=== PATIENT | male | born 1960 | race Caucasian/White ===

== ENCOUNTER 2019-08-15 23:08 | Inpatient (IN) | payer MEDICAID, OTHER ==
[~2019-08-15] VITALS: Ht 170.2 cm; Wt 103.6 kg
[2019-08-15 22:47] VITALS: BP 121/75
[2019-08-15] MEDS ORDERED: ATOR40TA70 PO (23:54)
[2019-08-15] MEDS ORDERED: CLOP75TA4 PO (23:54)
[2019-08-15] MEDS ORDERED: METO-385 PO (23:54)
[2019-08-15] MEDS ORDERED: GABA-531 PO (23:54)
[2019-08-15] MEDS ORDERED: ALBU6.7H11 IH (23:54)
[2019-08-15] MEDS ORDERED: METF-416 PO (23:54)
[2019-08-15] MEDS ORDERED: FURO80TA3 PO (23:54)
[2019-08-15] MEDS ORDERED: CLIN300C11 PO (23:54)
[2019-08-15] MEDS ORDERED: LISI40TA4 PO (23:54)
[2019-08-15] MEDS ORDERED: GLYB5TAB7 PO (23:54)
[2019-08-15] MEDS ORDERED: SPIR25TA6 PO (23:54)
[2019-08-15] MEDS ORDERED: APIX5TAB PO (23:54)
[2019-08-15 23:55] VITALS: BP 121/75
[2019-08-16] VITALS (12 sets, daily range): BP systolic 104–126; BP diastolic 60–78
[2019-08-16] MEDS ORDERED: ZOLPIDEM TARTRATE 5MG TABLET PO PRN (00:45)
[2019-08-16] MEDS ORDERED: DIPHENHYDRAMINE 50MG/ML VIAL IV PRN (00:45)
[2019-08-16] MEDS ORDERED: CLONIDINE 0.1MG TABLET PO PRN (00:45)
[2019-08-16] MEDS ORDERED: IPRATROPIUM/ALBUTEROL 0.5-3(2.5)MG/3ML NEB HHN PRN (00:45)
[2019-08-16] MEDS ORDERED: ONDANSETRON HCL 4MG/2ML INJ IV PRN (00:45)
[2019-08-16] MEDS ORDERED: DEXTROSE 50% WATER 50ML SYRINGE IV PRN (00:45)
[2019-08-16] MEDS ORDERED: MAGNESIUM HYDROXIDE 400MG/5ML 30ML UDC PO PRN (00:45)
[2019-08-16] MEDS ORDERED: HYDROCODONE/APAP 7.5/325MG 1 TAB TABLET PO PRN (00:45)
[2019-08-16] MEDS ORDERED: MAGNESIUM/ALUMINUM HYDROXIDE/SIMETHICONE 30ML UDC PO PRN (00:45)
[2019-08-16] MEDS ORDERED: ACETAMINOPHEN 325MG TABLET PO PRN (00:45)
[2019-08-16] MEDS: MORPHINE SULFATE 2 MG/ML CPJ (NOT FOR IM USE) IV PRN ×4 (01:22→21:19)
[2019-08-16] MEDS: SODIUM CHLORIDE 0.9% INJ 3ML FLUSH IVF SCH ×3 (06:19→21:20)
[2019-08-16] MEDS: BLOOD SUGAR DIAGNOSTIC STRIP TEST SCH ×4 (06:19→21:00)
[2019-08-16 06:50] LABS: BASOPHILS % 0.8 % (0.0-2.0); EOSINOPHILS % 2.7 % (0.0-5.0); HEMATOCRIT. 31.1 % (42.0-52.0); HEMOGLOBIN. 10.3 g/dL (14.0-18.0); LYMPHOCYTES % 15.7 % (20.0-50.0); MEAN CORPUSCULAR HEMOGLOBIN 29.2 pg (28.0-32.0); MEAN CORPUSCULAR VOLUME 88.3 fL (80.0-94.0); MEAN PLATELET VOLUME 9.3 fl (7.4-10.4); MONOCYTES % 12.5 % (2.0-8.0); NEUTROPHILS % 68.3 % (40.0-76.0); PLATELET 233 x1000/uL (130-400); RED BLOOD CELL COUNT 3.52 mill/uL (4.7-6.1); RED CELL DISTRIBUTION WIDTH 17.4 % (11.6-14.6)
[2019-08-16 06:54] LABS: INR 1.2; PROTHROMBIN TIME 12.7 sec (9.6-11.0)
[2019-08-16 08:02] LABS: CHLORIDE 99 mEq/L (98-107)
[2019-08-16 08:20] LABS: CLARITY URINE TURBID (CLEAR); COLOR URINE YELLOW (YELLOW); KETONES URINE NEGATIVE (NEGATIVE); LEUKOCYTE ESTERASE URINE 2+ (NEGATIVE); NITRITE URINE NEGATIVE (NEGATIVE); OCCULT BLOOD URINE 3+ (NEGATIVE); PH URINE 5.5 (4.5-8.0); PROTEIN URINE 3+ (NEGATIVE); SPECIFIC GRAVITY URINE 1.018 (1.005-1.030)
[2019-08-16] MEDS ORDERED: FLUCONAZOLE 200MG/100ML PREMIX IV ONE (08:45)
[2019-08-16] MEDS ORDERED: CLOPIDOGREL 75MG TABLET PO SCH (09:00)
[2019-08-16] MEDS: POLYETHYLENE GLYCOL 3350 (17GM) 1 DOSE PACK PO SCH ×2 (09:00→09:25)
[2019-08-16] MEDS ORDERED: ENOXAPARIN 30MG/0.3ML SYR SUBCUT SCH (09:00)
[2019-08-16] MEDS: INSULIN LISPRO 100 UNITS/ML SUBCUT SCH ×4 (09:22→21:20)
[2019-08-16] MEDS: TAMSULOSIN HCL 0.4MG SR CAPSULE PO SCH (09:24)
[2019-08-16] MEDS: ASPIRIN 81MG EC TABLET PO SCH (09:24)
[2019-08-16] MEDS: METOPROLOL TARTRATE 100MG TABLET PO SCH ×2 (09:24→21:19)
[2019-08-16] MEDS: FAMOTIDINE 20MG TABLET PO SCH ×2 (09:25→21:18)
[2019-08-16] MEDS ORDERED: FLUCONAZOLE 200 MG/100ML BAG 100 ML IV NR (10:00)
[2019-08-16] MEDS ORDERED: FUROSEMIDE 40MG/4ML VIAL IVP NR (10:00)
[2019-08-16] MEDS ORDERED: NITROGLYCERIN 0.4MG TABLET SL SL PRN (10:00)
[2019-08-16] MEDS ORDERED: MAGNESIUM 4 G PREMIX 100 ML IV NR (12:00)
[2019-08-16] MEDS ORDERED: CEFTRIAXONE 2 G in DEXTROSE 5% WATER 50 ML IV SCH (12:00)
[2019-08-16] MEDS: EPOETIN ALFA 10000UNITS/ML VIAL SUBCUT NR (12:00)
[2019-08-16] MEDS ORDERED: FLUCONAZOLE 100MG TABLET PO SCH (17:00)
[2019-08-16] MEDS ORDERED: BISACODYL 10MG SUPP PR PRN (21:00)
[2019-08-16] MEDS ORDERED: DOCUSATE SODIUM 100MG CAPSULE PO SCH (21:00)
[2019-08-16] MEDS ORDERED: DIPHENHYDRAMINE 25MG CAPSULE PO PRN (21:00)
[2019-08-16] MEDS ORDERED: ASCORBIC ACID 500 MG TABLET PO SCH (21:00)
[2019-08-16] MEDS ORDERED: CHLORHEXIDINE GLUCONATE 4% EXTERNAL USE TOP SCH (21:00)
[2019-08-16] MEDS: ALLOPURINOL 300 MG TABLET PO SCH (21:18)
[2019-08-17] VITALS (44 sets, daily range): BP systolic 89–164; BP diastolic 36–149
[2019-08-17] MEDS ORDERED: FUROSEMIDE 40MG/4ML VIAL IVP SCH (01:00)
[2019-08-17] MEDS: MORPHINE SULFATE 2 MG/ML CPJ (NOT FOR IM USE) IV PRN ×2 (01:39→21:20)
[2019-08-17] MEDS ORDERED: MAGNESIUM 4 G PREMIX 100 ML IV SCH (03:00)
[2019-08-17] MEDS ORDERED: FUROSEMIDE 40MG/4ML VIAL IVP NR (05:00)
[2019-08-17] MEDS: ALLOPURINOL 300 MG TABLET PO SCH (05:10)
[2019-08-17] MEDS ORDERED: BACITRACIN 15GM TUBE TOP ONE (05:53)
[2019-08-17] MEDS ORDERED: SKIN ADHESIVE 0.7 GM EA TOP ONE (05:53)
[2019-08-17] MEDS ORDERED: BACITRACIN 50,000 UNITS/VIAL ONE (05:54)
[2019-08-17] MEDS ORDERED: THROMBIN (BOVINE) 5000 UNITS/VIAL TOP ONE (05:54)
[2019-08-17] MEDS: SODIUM CHLORIDE 0.9% INJ 3ML FLUSH IVF SCH ×2 (06:00→20:04)
[2019-08-17] MEDS ORDERED: NICARDIPINE 50 MG in NS 250 ML IV SCH (06:00)
[2019-08-17] MEDS ORDERED: DEL NIDO ELECTROLYTE-S(PH 7.4) 1,000 ML IV SCH ×2 (06:00)
[2019-08-17] MEDS ORDERED: DILTIAZEM HCL 5MG/ML 5ML VIAL IV SCH (06:00)
[2019-08-17] MEDS ORDERED: NOREPINEPHRINE 4 MG in DEXT 5% WATER 246 ML IV SCH (06:00)
[2019-08-17] MEDS ORDERED: PAPAVERINE HCL 180MG in SODIUM CHLORIDE 0.9% 24ML IV SCH (06:00)
[2019-08-17] MEDS: BLOOD SUGAR DIAGNOSTIC STRIP TEST SCH ×8 (06:00→23:08)
[2019-08-17] MEDS ORDERED: CEFAZOLIN 2,000 MG in DEXT 5% WATER 100 ML IV SCH (06:00)
[2019-08-17] MEDS ORDERED: PHENYLEPHRINE 10 MG in DEXT 5% WATER 249 ML IV SCH (06:00)
[2019-08-17] MEDS ORDERED: DOBUTAMINE 250MG PREMIX 250 ML IV SCH (06:00)
[2019-08-17] MEDS ORDERED: AMINOCAPROIC ACID 10,000 MG in SODIUM CHLORIDE 0.9% 460 ML IV SCH (06:00)
[2019-08-17] MEDS ORDERED: HEPARIN 1000 UNITS/ML 10ML ONE ×3 (06:26→10:07)
[2019-08-17 06:57] LABS: BASOPHILS % 0.8 % (0.0-2.0); HEMATOCRIT. 32.3 % (42.0-52.0); HEMOGLOBIN. 10.6 g/dL (14.0-18.0); LYMPHOCYTES % 15.4 % (20.0-50.0); MEAN CORPUSCULAR HEMOGLOBIN 29.3 pg (28.0-32.0); MEAN PLATELET VOLUME 9.1 fl (7.4-10.4); MONOCYTES % 9.5 % (2.0-8.0); NEUTROPHILS % 71.3 % (40.0-76.0); PLATELET 253 x1000/uL (130-400); RED BLOOD CELL COUNT 3.63 mill/uL (4.7-6.1); RED CELL DISTRIBUTION WIDTH 17.6 % (11.6-14.6)
[2019-08-17] MEDS ORDERED: CHLORHEXIDINE GLUCONATE 4% EXTERNAL USE TOP SCH (07:00)
[2019-08-17 07:18] LABS: PHOSPHORUS 3.2 mg/dL (2.5-4.9)
[2019-08-17] MEDS ORDERED: MIDAZOLAM HCL 5 MG/5 ML VIAL ONE (07:25)
[2019-08-17 07:44] LABS: VITAMIN B12 SERUM 896 pg/mL (211-911)
[2019-08-17] MEDS ORDERED: HEPARIN 10,000 UNITS/ML VIAL ONE (08:36)
[2019-08-17] MEDS ORDERED: CALCIUM CHLORIDE 1GM/10ML SYR IV ONE ×2 (08:36→10:08)
[2019-08-17] MEDS ORDERED: AMINOCAPROIC ACID 250 MG/ML 20ML VIAL ONE (08:36)
[2019-08-17] MEDS ORDERED: SODIUM BICARBONATE 8.4% 1 MEQ/ML 50ML SYR IV ONE ×4 (08:36→17:26)
[2019-08-17] MEDS ORDERED: ALBUMIN HUMAN 25GM/100ML (25%) IV ONE (08:36)
[2019-08-17] MEDS: ASPIRIN 81MG EC TABLET PO SCH (09:00)
[2019-08-17] MEDS: TAMSULOSIN HCL 0.4MG SR CAPSULE PO SCH (09:00)
[2019-08-17] MEDS ORDERED: EPHEDRINE SULFATE 50MG/ML VIAL ONE (10:07)
[2019-08-17] MEDS ORDERED: ONDANSETRON HCL 4MG/2ML INJ ONE (10:07)
[2019-08-17] MEDS ORDERED: PROTAMINE SULFATE 10MG/ML VIAL 25ML IV ONE (10:07)
[2019-08-17] MEDS ORDERED: DEXAMETHASONE 4MG/ML 1ML VIAL ONE (10:07)
[2019-08-17] MEDS ORDERED: ESMOLOL HCL 10MG/ML 10ML VIAL IV ONE (10:08)
[2019-08-17] MEDS ORDERED: ETOMIDATE 2MG/ML 10ML VIAL IV ONE (10:08)
[2019-08-17] MEDS ORDERED: EPINEPHRINE 0.1MG/ML (1:10,000) 10ML SYR ONE ×2 (10:08→10:28)
[2019-08-17] MEDS ORDERED: NEOSTIGMINE METHYLSULFATE 1MG/ML 10 ML VIAL ONE (10:08)
[2019-08-17] MEDS ORDERED: ROCURONIUM BROMIDE 10MG/ML VIAL 5ML IV ONE (10:08)
[2019-08-17] MEDS ORDERED: AMIODARONE HCL 50MG/ML 3ML VIAL IV ONE (11:49)
[2019-08-17] MEDS ORDERED: FUROSEMIDE 100MG/10ML VIAL ONE (11:49)
[2019-08-17] MEDS: EPOETIN ALFA 10000UNITS/ML VIAL SUBCUT NR (12:00)
[2019-08-17] MEDS ORDERED: SODIUM CHLORIDE 0.9% 500 ML IV PRN (13:22)
[2019-08-17] MEDS ORDERED: EPINEPHRINE 1 MG in DEXT 5% WATER 250 ML IV SCH (13:30)
[2019-08-17] MEDS ORDERED: CALCIUM CHLORIDE 5,000 MG in DEXT 5% WATER 500 ML IV PRN (13:30)
[2019-08-17] MEDS ORDERED: ALBUMIN HUMAN 12.5G/250ML (5%) IV PRN (13:30)
[2019-08-17] MEDS ORDERED: ALBUMIN HUMAN 25GM/100ML (25%) IV PRN (13:30)
[2019-08-17 14:31] LABS: BG BASE EXCESS -6.4 mmol/L (-2.0-2.0); BG DEOXYHEMOGLOBIN 1.6 % (0.0-5.0); BG FRACTION INSPIRED OXYGEN 50; BG HCO3 ACT 21.6 mmol/L (22.0-26.0); BG METHEMOGLOBIN 0.5 % (0.0-1.5); BG OXYGEN SATURATION 98.4 % (92.0-98.5); BG OXYHEMOGLOBIN 97.9 % (94.0-97.0); BG PCO2 54.1 mmHg (35.0-45.0); BG PH 7.219 (7.350-7.450); BG PO2 149.5 mmHg (75.0-100.0); BG SAMPLE SITE A-LINE; BG TIDAL VOLUME(mL) 500 mL; BG TOTAL HEMOGLOBIN 11.6 g/dL (12.0-18.0); BG VENT MODE VENT - A/C; BG VENT RATE 12 set
[2019-08-17] MEDS ORDERED: SODIUM BICARBONATE 8.4% 1 MEQ/ML 50ML SYR IV SCH (14:45)
[2019-08-17] MEDS: INSULIN REGULAR (DRIP) 100 UNITS in SODIUM CHLORIDE 0.9% 99 ML IV SCH ×2 (14:49→21:13)
[2019-08-17 14:50] LABS: HEMATOCRIT. 32.6 % (42.0-52.0); HEMOGLOBIN. 10.7 g/dL (14.0-18.0); MEAN CORPUSCULAR HEMOGLOBIN 29.5 pg (28.0-32.0); MEAN CORPUSCULAR VOLUME 89.7 fL (80.0-94.0); MEAN PLATELET VOLUME 8.9 fl (7.4-10.4); PLATELET 181 x1000/uL (130-400); RED BLOOD CELL COUNT 3.63 mill/uL (4.7-6.1); RED CELL DISTRIBUTION WIDTH 16.8 % (11.6-14.6)
[2019-08-17] MEDS: DEXT 5%/0.45% NACL 1000ML 1,000 ML IV SCH (14:55)
[2019-08-17 15:02] LABS: CHLORIDE 100 mEq/L (98-107)
[2019-08-17] MEDS: EPINEPHRINE 4 MG in DEXT 5% WATER 246 ML IV SCH ×2 (15:10→15:27)
[2019-08-17] MEDS: DOPAMINE 400MG/250ML PREMIX 250 ML IV SCH ×2 (15:12→15:28)
[2019-08-17 15:36] LABS: BG BASE EXCESS -3.8 mmol/L (-2.0-2.0); BG CARBOXYHEMOGLOBIN 0.4 % (0.5-1.5); BG DEOXYHEMOGLOBIN 7.5 % (0.0-5.0); BG FRACTION INSPIRED OXYGEN 50; BG HCO3 ACT 24.4 mmol/L (22.0-26.0); BG METHEMOGLOBIN 0.2 % (0.0-1.5); BG OXYGEN SATURATION 92.5 % (92.0-98.5); BG OXYHEMOGLOBIN 91.9 % (94.0-97.0); BG PCO2 60.3 mmHg (35.0-45.0); BG PH 7.225 (7.350-7.450); BG PO2 73.9 mmHg (75.0-100.0); BG SAMPLE SITE A-LINE; BG TIDAL VOLUME(mL) 500 mL; BG TOTAL HEMOGLOBIN 11.3 g/dL (12.0-18.0); BG VENT MODE VENT - A/C; BG VENT RATE 12 set
[2019-08-17 15:44] LABS: PLATELET ESTIMATE NORMAL
[2019-08-17 16:11] LABS: BG BASE EXCESS -7.3 mmol/L (-2.0-2.0); BG CARBOXYHEMOGLOBIN 0.3 % (0.5-1.5); BG DEOXYHEMOGLOBIN 4.4 % (0.0-5.0); BG FRACTION INSPIRED OXYGEN 50; BG METHEMOGLOBIN 0.3 % (0.0-1.5); BG OXYGEN SATURATION 95.6 % (92.0-98.5); BG PCO2 41.4 mmHg (35.0-45.0); BG PH 7.279 (7.350-7.450); BG PO2 86.7 mmHg (75.0-100.0); BG SAMPLE SITE A-LINE; BG TIDAL VOLUME(mL) 550 mL; BG TOTAL HEMOGLOBIN 11.3 g/dL (12.0-18.0); BG VENT MODE VENT - A/C; BG VENT RATE 16 set
[2019-08-17] MEDS ORDERED: DEXTROSE 50% WATER 50ML SYRINGE IV PRN ×4 (16:30→16:45)
[2019-08-17] MEDS ORDERED: SODIUM BICARBONATE 8.4% 1 MEQ/ML 50ML SYR IV NR ×2 (16:30→17:28)
[2019-08-17] MEDS: IPRATROPIUM/ALBUTEROL 0.5-3(2.5)MG/3ML NEB HHN SCH ×2 (16:43→21:47)
[2019-08-17] MEDS: MAGNESIUM 1 G PREMIX 100 ML IV PRN (16:52)
[2019-08-17] MEDS ORDERED: INSULIN REGULAR (DRIP) 100 UNITS in SODIUM CHLORIDE 0.9% 99 ML IV SCH (17:00)
[2019-08-17] MEDS: DOCUSATE SODIUM 100MG CAPSULE PO SCH (17:00)
[2019-08-17 17:10] LABS: BG BASE EXCESS -4.7 mmol/L (-2.0-2.0); BG CARBOXYHEMOGLOBIN 0.3 % (0.5-1.5); BG FRACTION INSPIRED OXYGEN 50; BG HCO3 ACT 20.7 mmol/L (22.0-26.0); BG METHEMOGLOBIN 0.3 % (0.0-1.5); BG OXYHEMOGLOBIN 96.4 % (94.0-97.0); BG PCO2 39.2 mmHg (35.0-45.0); BG PO2 98.3 mmHg (75.0-100.0); BG SAMPLE SITE A-LINE; BG TIDAL VOLUME(mL) 550 mL; BG TOTAL HEMOGLOBIN 11.1 g/dL (12.0-18.0); BG VENT MODE VENT - A/C; BG VENT RATE 16 set
[2019-08-17] MEDS ORDERED: KCL 10MEQ/50ML PREMIX 100 ML IV PRN (17:15)
[2019-08-17] MEDS: KCL 10MEQ/50ML PREMIX 150 ML IV PRN ×2 (17:31→20:21)
[2019-08-17 18:04] LABS: BG CARBOXYHEMOGLOBIN 0.1 % (0.5-1.5); BG DEOXYHEMOGLOBIN 1.8 % (0.0-5.0); BG FRACTION INSPIRED OXYGEN 50; BG HCO3 ACT 21.5 mmol/L (22.0-26.0); BG METHEMOGLOBIN 0.2 % (0.0-1.5); BG OXYGEN SATURATION 98.2 % (92.0-98.5); BG OXYHEMOGLOBIN 97.9 % (94.0-97.0); BG PCO2 36.5 mmHg (35.0-45.0); BG PH 7.389 (7.350-7.450); BG PO2 128.7 mmHg (75.0-100.0); BG PRESSURE SUPPORT 15; BG SAMPLE SITE A-LINE; BG TOTAL HEMOGLOBIN 11.1 g/dL (12.0-18.0); BG VENT MODE VENT - CPAP
[2019-08-17] MEDS: BACITRACIN 15GM TUBE TOP SCH (18:41)
[2019-08-17] MEDS: CEFAZOLIN 1000MG PREMIX 50 ML IV SCH ×2 (18:55→23:26)
[2019-08-17 20:00] LABS: BG BASE EXCESS -1.2 mmol/L (-2.0-2.0); BG CARBOXYHEMOGLOBIN 0.1 % (0.5-1.5); BG DEOXYHEMOGLOBIN 1.9 % (0.0-5.0); BG FRACTION INSPIRED OXYGEN 50; BG HCO3 ACT 23.1 mmol/L (22.0-26.0); BG METHEMOGLOBIN 0.2 % (0.0-1.5); BG OXYGEN SATURATION 98.1 % (92.0-98.5); BG OXYHEMOGLOBIN 97.8 % (94.0-97.0); BG PCO2 37.4 mmHg (35.0-45.0); BG PH 7.409 (7.350-7.450); BG PO2 117.5 mmHg (75.0-100.0); BG SAMPLE SITE A-LINE; BG TOTAL HEMOGLOBIN 10.8 g/dL (12.0-18.0); BG VENT MODE MASK - AEROSOL
[2019-08-17] MEDS: FAMOTIDINE 20MG TABLET PO SCH (20:03)
[2019-08-17] MEDS: EPINEPHRINE 4 MG in SODIUM CHLORIDE 0.9% 246 ML IV PRN (20:05)
[2019-08-17 20:06] LABS: HEMATOCRIT. 32.3 % (42.0-52.0); HEMOGLOBIN. 10.7 g/dL (14.0-18.0); MEAN CORPUSCULAR HEMOGLOBIN 29.3 pg (28.0-32.0); MEAN CORPUSCULAR VOLUME 88.6 fL (80.0-94.0); MEAN PLATELET VOLUME 8.8 fl (7.4-10.4); PLATELET 194 x1000/uL (130-400); RED BLOOD CELL COUNT 3.65 mill/uL (4.7-6.1); RED CELL DISTRIBUTION WIDTH 16.1 % (11.6-14.6)
[2019-08-17 20:15] LABS: INR 1.4; PARTIAL THROMBOPLASTIN TIME 27.1 sec (23.4-31.0); PROTHROMBIN TIME 14.6 sec (9.6-11.0)
[2019-08-17 20:18] LABS: PLATELET ESTIMATE NORMAL
[2019-08-17] MEDS ORDERED: MAGNESIUM 2 G PREMIX 50 ML IV ONE (21:15)
[2019-08-18] VITALS (98 sets, daily range): BP systolic 0–149; BP diastolic 0–97
[2019-08-18] MEDS: BLOOD SUGAR DIAGNOSTIC STRIP TEST SCH ×24 (00:31→23:28)
[2019-08-18] MEDS: IPRATROPIUM/ALBUTEROL 0.5-3(2.5)MG/3ML NEB HHN SCH ×6 (00:50→20:45)
[2019-08-18] MEDS: MORPHINE SULFATE 4 MG/ML CPJ (NOT FOR IM USE) IV PRN ×2 (00:58→04:24)
[2019-08-18] MEDS: DOPAMINE 400MG/250ML PREMIX 250 ML IV SCH ×2 (01:20→15:51)
[2019-08-18] MEDS: EPINEPHRINE 4 MG in SODIUM CHLORIDE 0.9% 246 ML IV PRN ×3 (02:11→18:45)
[2019-08-18 02:21] LABS: HEMATOCRIT. 31.6 % (42.0-52.0); HEMOGLOBIN. 10.4 g/dL (14.0-18.0); MEAN CORPUSCULAR HEMOGLOBIN 29.2 pg (28.0-32.0); MEAN CORPUSCULAR VOLUME 88.8 fL (80.0-94.0); MEAN PLATELET VOLUME 9.1 fl (7.4-10.4); PLATELET 203 x1000/uL (130-400); RED BLOOD CELL COUNT 3.56 mill/uL (4.7-6.1); RED CELL DISTRIBUTION WIDTH 16.6 % (11.6-14.6)
[2019-08-18 02:27] LABS: PLATELET ESTIMATE NORMAL
[2019-08-18] MEDS ORDERED: KCL 20MEQ/100ML PREMIX 100 ML IV SCH (03:00)
[2019-08-18] MEDS ORDERED: MAGNESIUM 2 G PREMIX 50 ML IV SCH (03:00)
[2019-08-18 04:48] LABS: BG BASE EXCESS 2.7 mmol/L (-2.0-2.0); BG CARBOXYHEMOGLOBIN 0.1 % (0.5-1.5); BG DEOXYHEMOGLOBIN 6.2 % (0.0-5.0); BG FRACTION INSPIRED OXYGEN 32; BG HCO3 ACT 27.3 mmol/L (22.0-26.0); BG METHEMOGLOBIN 0.2 % (0.0-1.5); BG OXYGEN SATURATION 93.8 % (92.0-98.5); BG OXYHEMOGLOBIN 93.5 % (94.0-97.0); BG PCO2 42.1 mmHg (35.0-45.0); BG SAMPLE SITE A-LINE; BG TOTAL HEMOGLOBIN 11.2 g/dL (12.0-18.0); BG VENT MODE NASAL CANNULA
[2019-08-18] MEDS: SODIUM CHLORIDE 0.9% INJ 3ML FLUSH IVF SCH ×3 (05:46→21:10)
[2019-08-18] MEDS: MORPHINE SULFATE 2 MG/ML CPJ (NOT FOR IM USE) IV PRN ×2 (07:01→15:49)
[2019-08-18] MEDS ORDERED: MAGNESIUM SULFATE 3 GM in DEXT 5% WATER 100 ML IV PRN (08:00)
[2019-08-18] MEDS: CEFAZOLIN 1000MG PREMIX 50 ML IV SCH ×2 (08:00→15:48)
[2019-08-18] MEDS ORDERED: MAGNESIUM 2 G PREMIX 50 ML IV PRN (08:00)
[2019-08-18] MEDS ORDERED: ALBUMIN HUMAN 25GM/500ML (5%) IV ONE (08:45)
[2019-08-18 08:47] LABS: BG BASE EXCESS 3.5 mmol/L (-2.0-2.0); BG CARBOXYHEMOGLOBIN 0.6 % (0.5-1.5); BG DEOXYHEMOGLOBIN 4.9 % (0.0-5.0); BG FRACTION INSPIRED OXYGEN 40; BG HCO3 ACT 28.5 mmol/L (22.0-26.0); BG METHEMOGLOBIN 0.3 % (0.0-1.5); BG OXYGEN SATURATION 95.1 % (92.0-98.5); BG OXYHEMOGLOBIN 94.2 % (94.0-97.0); BG PCO2 44.7 mmHg (35.0-45.0); BG PH 7.422 (7.350-7.450); BG PO2 73.9 mmHg (75.0-100.0); BG SAMPLE SITE A-LINE; BG TOTAL HEMOGLOBIN 11.1 g/dL (12.0-18.0); BG VENT MODE MASK - AEROSOL
[2019-08-18] MEDS: TAMSULOSIN HCL 0.4MG SR CAPSULE PO SCH (09:13)
[2019-08-18] MEDS: ASPIRIN 81MG EC TABLET PO SCH (09:13)
[2019-08-18] MEDS: FAMOTIDINE 20MG TABLET PO SCH ×2 (09:13→20:09)
[2019-08-18] MEDS: DOCUSATE SODIUM 100MG CAPSULE PO SCH ×2 (09:13→17:00)
[2019-08-18] MEDS: BACITRACIN 15GM TUBE TOP SCH ×2 (09:13→17:00)
[2019-08-18 09:27] LABS: HEMATOCRIT. 32.5 % (42.0-52.0); HEMOGLOBIN. 10.6 g/dL (14.0-18.0); MEAN CORPUSCULAR HEMOGLOBIN 29.2 pg (28.0-32.0); MEAN CORPUSCULAR VOLUME 89.7 fL (80.0-94.0); MEAN PLATELET VOLUME 9.4 fl (7.4-10.4); PLATELET 207 x1000/uL (130-400); RED BLOOD CELL COUNT 3.63 mill/uL (4.7-6.1); RED CELL DISTRIBUTION WIDTH 16.7 % (11.6-14.6)
[2019-08-18 09:59] LABS: PLATELET ESTIMATE NORMAL
[2019-08-18 10:41] LABS: BG BASE EXCESS 2.1 mmol/L (-2.0-2.0); BG CARBOXYHEMOGLOBIN 0.3 % (0.5-1.5); BG DEOXYHEMOGLOBIN 2.6 % (0.0-5.0); BG FRACTION INSPIRED OXYGEN 44; BG HCO3 ACT 26.9 mmol/L (22.0-26.0); BG METHEMOGLOBIN 0.1 % (0.0-1.5); BG OXYGEN SATURATION 97.4 % (92.0-98.5); BG PCO2 42.9 mmHg (35.0-45.0); BG PH 7.415 (7.350-7.450); BG PO2 100.1 mmHg (75.0-100.0); BG SAMPLE SITE A-LINE; BG TOTAL HEMOGLOBIN 11.7 g/dL (12.0-18.0); BG VENT MODE NASAL CANNULA
[2019-08-18] MEDS: KETOROLAC 15MG/ML VIAL IV SCH ×3 (10:46→20:08)
[2019-08-18 11:32] LABS: CLARITY URINE CLEAR (CLEAR); COLOR URINE YELLOW (YELLOW); KETONES URINE NEGATIVE (NEGATIVE); LEUKOCYTE ESTERASE URINE 1+ (NEGATIVE); NITRITE URINE NEGATIVE (NEGATIVE); OCCULT BLOOD URINE 1+ (NEGATIVE); PROTEIN URINE 1+ (NEGATIVE); UROBILINOGEN URINE 0.2 E.U./dL (0.2-1.0)
[2019-08-18] MEDS: MAGNESIUM 1 G PREMIX 100 ML IV PRN (11:32)
[2019-08-18] MEDS: DEXT 5%/0.45% NACL 1000ML 1,000 ML IV SCH (11:33)
[2019-08-18] MEDS: CLOPIDOGREL 75MG TABLET PO SCH (12:41)
[2019-08-18] MEDS ORDERED: ALBUMIN HUMAN 12.5G/250ML (5%) IV NR (15:15)
[2019-08-18] MEDS ORDERED: EPOETIN ALFA 10000UNITS/ML VIAL SUBCUT NR (15:30)
[2019-08-18] MEDS ORDERED: FUROSEMIDE 40MG/4ML VIAL IVP NR (15:45)
[2019-08-18] MEDS: ALBUMIN HUMAN 25GM/100ML (25%) IV SCH ×3 (15:48→23:32)
[2019-08-18] MEDS: HALOPERIDOL 5MG TABLET PO PRN (20:09)
[2019-08-18] MEDS ORDERED: FUROSEMIDE 40MG/4ML VIAL IVP SCH (22:00)
[2019-08-18] MEDS ORDERED: MIDODRINE HCL 5MG TABLET PO SCH (22:00)
[2019-08-18] MEDS: MIDODRINE HCL 5MG TABLET PO SCH (22:27)
[2019-08-18] MEDS: SERTRALINE HCL 50MG TABLET PO SCH (22:27)
[2019-08-19] VITALS (92 sets, daily range): BP systolic 72–179; BP diastolic 36–80
[2019-08-19] MEDS: BLOOD SUGAR DIAGNOSTIC STRIP TEST SCH ×20 (00:25→20:53)
[2019-08-19] MEDS: MORPHINE SULFATE 2 MG/ML CPJ (NOT FOR IM USE) IV PRN ×2 (00:26→14:42)
[2019-08-19] MEDS: IPRATROPIUM/ALBUTEROL 0.5-3(2.5)MG/3ML NEB HHN SCH ×6 (00:56→20:34)
[2019-08-19] MEDS: ALBUMIN HUMAN 25GM/100ML (25%) IV SCH ×2 (03:58→09:09)
[2019-08-19 05:36] LABS: HEMATOCRIT. 24.1 % (42.0-52.0); HEMOGLOBIN. 7.9 g/dL (14.0-18.0); MEAN CORPUSCULAR HEMOGLOBIN 29.3 pg (28.0-32.0); MEAN CORPUSCULAR VOLUME 89.9 fL (80.0-94.0); MEAN PLATELET VOLUME 9.3 fl (7.4-10.4); PLATELET 140 x1000/uL (130-400); RED BLOOD CELL COUNT 2.68 mill/uL (4.7-6.1); RED CELL DISTRIBUTION WIDTH 17.1 % (11.6-14.6)
[2019-08-19] MEDS: KETOROLAC 15MG/ML VIAL IV SCH (05:39)
[2019-08-19] MEDS: SODIUM CHLORIDE 0.9% INJ 3ML FLUSH IVF SCH ×3 (05:39→20:53)
[2019-08-19] MEDS: DEXT 5%/0.45% NACL 1000ML 1,000 ML IV SCH (06:16)
[2019-08-19] MEDS: MIDODRINE HCL 5MG TABLET PO SCH ×3 (06:16→20:49)
[2019-08-19] MEDS ORDERED: KCL 20MEQ/100ML PREMIX 100 ML IV SCH (07:00)
[2019-08-19 07:33] LABS: PLATELET ESTIMATE NORMAL
[2019-08-19] MEDS ORDERED: MAGNESIUM 2 G PREMIX 50 ML IV SCH (08:00)
[2019-08-19] MEDS ORDERED: CLOPIDOGREL 75MG TABLET PO SCH (09:00)
[2019-08-19] MEDS ORDERED: BUMETANIDE 2.5MG/10ML VIAL IV NR (09:00)
[2019-08-19] MEDS: DOCUSATE SODIUM 100MG CAPSULE PO SCH ×2 (09:09→17:17)
[2019-08-19] MEDS: FAMOTIDINE 20MG TABLET PO SCH ×2 (09:09→20:49)
[2019-08-19] MEDS: HALOPERIDOL 5MG TABLET PO PRN ×3 (09:09→23:26)
[2019-08-19] MEDS: ASPIRIN 81MG EC TABLET PO SCH (09:09)
[2019-08-19] MEDS: SERTRALINE HCL 50MG TABLET PO SCH (09:10)
[2019-08-19] MEDS: CLOPIDOGREL 75MG TABLET PO SCH (09:10)
[2019-08-19] MEDS: TAMSULOSIN HCL 0.4MG SR CAPSULE PO SCH (09:10)
[2019-08-19] MEDS: BACITRACIN 15GM TUBE TOP SCH ×2 (09:15→17:11)
[2019-08-19] MEDS ORDERED: FUROSEMIDE 100MG/10ML VIAL IV ONE (13:00)
[2019-08-19 13:06] LABS: BG BASE EXCESS 1.6 mmol/L (-2.0-2.0); BG CARBOXYHEMOGLOBIN 0.3 % (0.5-1.5); BG DEOXYHEMOGLOBIN 2.2 % (0.0-5.0); BG FRACTION INSPIRED OXYGEN 40; BG HCO3 ACT 26.9 mmol/L (22.0-26.0); BG METHEMOGLOBIN 0.3 % (0.0-1.5); BG OXYGEN SATURATION 97.8 % (92.0-98.5); BG OXYHEMOGLOBIN 97.2 % (94.0-97.0); BG PCO2 44.9 mmHg (35.0-45.0); BG PH 7.395 (7.350-7.450); BG PO2 116.3 mmHg (75.0-100.0); BG SAMPLE SITE A-LINE; BG TOTAL HEMOGLOBIN 11.7 g/dL (12.0-18.0); BG VENT MODE MASK - AEROSOL
[2019-08-19] MEDS: FUROSEMIDE 100 MG in DEXT 5% WATER 90 ML IV SCH ×2 (13:44→22:55)
[2019-08-19 14:54] LABS: BG BASE EXCESS -1.5 mmol/L (-2.0-2.0); BG CARBOXYHEMOGLOBIN 0.3 % (0.5-1.5); BG DEOXYHEMOGLOBIN 8.8 % (0.0-5.0); BG FRACTION INSPIRED OXYGEN 50; BG HCO3 ACT 23.4 mmol/L (22.0-26.0); BG METHEMOGLOBIN 0.3 % (0.0-1.5); BG OXYGEN SATURATION 91.1 % (92.0-98.5); BG OXYHEMOGLOBIN 90.6 % (94.0-97.0); BG PCO2 40.3 mmHg (35.0-45.0); BG PH 7.382 (7.350-7.450); BG PO2 62.2 mmHg (75.0-100.0); BG SAMPLE SITE A-LINE; BG TOTAL HEMOGLOBIN 11.8 g/dL (12.0-18.0); BG VENT MODE MASK - AEROSOL
[2019-08-19 14:57] LABS: HEMATOCRIT. 33.8 % (42.0-52.0); HEMOGLOBIN. 11.1 g/dL (14.0-18.0); MEAN CORPUSCULAR HEMOGLOBIN 29.6 pg (28.0-32.0); MEAN CORPUSCULAR VOLUME 90.3 fL (80.0-94.0); MEAN PLATELET VOLUME 9.3 fl (7.4-10.4); PLATELET 157 x1000/uL (130-400); RED BLOOD CELL COUNT 3.75 mill/uL (4.7-6.1); RED CELL DISTRIBUTION WIDTH 16.6 % (11.6-14.6)
[2019-08-19 15:03] LABS: CHLORIDE 123 mEq/L (98-107)
[2019-08-19] MEDS ORDERED: DEXTROSE 50% WATER 50ML SYRINGE IV PRN (15:30)
[2019-08-19] MEDS ORDERED: AMIODARONE HCL 150 MG in DEXT 5% WATER 100 ML IV SCH (16:00)
[2019-08-19] MEDS ORDERED: GLYBURIDE 5MG TABLET PO NR (16:30)
[2019-08-19] MEDS: DOPAMINE 400MG/250ML PREMIX 250 ML IV SCH (16:40)
[2019-08-19] MEDS: MORPHINE SULFATE 4 MG/ML CPJ (NOT FOR IM USE) IV PRN ×2 (16:51→21:01)
[2019-08-19] MEDS ORDERED: POTASSIUM CHLORIDE INJ 40 MEQ in DEXT 5% WATER 250 ML IV NR (17:00)
[2019-08-19] MEDS ORDERED: MAGNESIUM 2 G PREMIX 50 ML IV NR (17:00)
[2019-08-19] MEDS: KCL 10MEQ/50ML PREMIX 200 ML IV PRN (17:12)
[2019-08-19 17:35] LABS: PLATELET ESTIMATE NORMAL
[2019-08-19] MEDS: INSULIN LISPRO 100 UNITS/ML SUBCUT SCH ×2 (18:20→20:50)
[2019-08-19] MEDS: HEPARIN 5000 UNITS/ML VIAL SUBCUT SCH (20:50)
[2019-08-20] VITALS (91 sets, daily range): BP systolic 67–223; BP diastolic 25–216
[2019-08-20] MEDS: IPRATROPIUM/ALBUTEROL 0.5-3(2.5)MG/3ML NEB HHN SCH ×6 (00:38→21:26)
[2019-08-20] MEDS: MORPHINE SULFATE 4 MG/ML CPJ (NOT FOR IM USE) IV PRN (00:48)
[2019-08-20] MEDS: DEXT 5%/0.45% NACL 1000ML 1,000 ML IV SCH (03:19)
[2019-08-20] MEDS: EPINEPHRINE 4 MG in SODIUM CHLORIDE 0.9% 246 ML IV PRN (03:19)
[2019-08-20] MEDS ORDERED: METOLAZONE 10MG TABLET PO SCH (04:00)
[2019-08-20] MEDS ORDERED: BUMETANIDE 2.5MG/10ML VIAL IV SCH (04:00)
[2019-08-20 05:49] LABS: HEMATOCRIT. 35.4 % (42.0-52.0); HEMOGLOBIN. 11.4 g/dL (14.0-18.0); MEAN CORPUSCULAR HEMOGLOBIN 29.1 pg (28.0-32.0); MEAN CORPUSCULAR VOLUME 90.4 fL (80.0-94.0); MEAN PLATELET VOLUME 9.7 fl (7.4-10.4); PLATELET 173 x1000/uL (130-400); RED BLOOD CELL COUNT 3.91 mill/uL (4.7-6.1); RED CELL DISTRIBUTION WIDTH 16.7 % (11.6-14.6)
[2019-08-20 05:55] LABS: CHLORIDE 104 mEq/L (98-107)
[2019-08-20 06:03] LABS: PHOSPHORUS 4.6 mg/dL (2.5-4.9)
[2019-08-20] MEDS: MIDODRINE HCL 5MG TABLET PO SCH ×3 (06:11→22:00)
[2019-08-20] MEDS: SODIUM CHLORIDE 0.9% INJ 3ML FLUSH IVF SCH ×3 (06:11→22:00)
[2019-08-20] MEDS: BLOOD SUGAR DIAGNOSTIC STRIP TEST SCH ×4 (07:50→20:57)
[2019-08-20] MEDS ORDERED: METOPROLOL TARTRATE 25MG TABLET PO SCH (09:00)
[2019-08-20] MEDS: ASPIRIN 81MG EC TABLET PO SCH (09:08)
[2019-08-20] MEDS: TAMSULOSIN HCL 0.4MG SR CAPSULE PO SCH (09:09)
[2019-08-20] MEDS: CLOPIDOGREL 75MG TABLET PO SCH (09:09)
[2019-08-20] MEDS: FAMOTIDINE 20MG TABLET PO SCH ×2 (09:09→20:57)
[2019-08-20] MEDS: GLYBURIDE 5MG TABLET PO SCH (09:09)
[2019-08-20] MEDS: DOCUSATE SODIUM 100MG CAPSULE PO SCH ×2 (09:09→17:00)
[2019-08-20] MEDS: SERTRALINE HCL 50MG TABLET PO SCH (09:09)
[2019-08-20] MEDS: HEPARIN 5000 UNITS/ML VIAL SUBCUT SCH ×2 (09:11→20:56)
[2019-08-20] MEDS: INSULIN LISPRO 100 UNITS/ML SUBCUT SCH ×4 (09:11→20:56)
[2019-08-20 09:45] LABS: BG BASE EXCESS -1.9 mmol/L (-2.0-2.0); BG CARBOXYHEMOGLOBIN 0.5 % (0.5-1.5); BG DEOXYHEMOGLOBIN 5.5 % (0.0-5.0); BG FRACTION INSPIRED OXYGEN 40; BG HCO3 ACT 21.7 mmol/L (22.0-26.0); BG METHEMOGLOBIN 0.3 % (0.0-1.5); BG OXYGEN SATURATION 94.5 % (92.0-98.5); BG OXYHEMOGLOBIN 93.7 % (94.0-97.0); BG PCO2 33.3 mmHg (35.0-45.0); BG PH 7.432 (7.350-7.450); BG PO2 71.6 mmHg (75.0-100.0); BG SAMPLE SITE A-LINE; BG TOTAL HEMOGLOBIN 11.9 g/dL (12.0-18.0); BG VENT MODE MASK - AEROSOL
[2019-08-20] MEDS: BACITRACIN 15GM TUBE TOP SCH ×3 (10:19→19:15)
[2019-08-20] MEDS: FUROSEMIDE 100 MG in DEXT 5% WATER 90 ML IV SCH ×2 (10:19→20:52)
[2019-08-20] MEDS: DOPAMINE 400MG/250ML PREMIX 250 ML IV SCH (10:43)
[2019-08-20 11:14] LABS: PLATELET ESTIMATE NORMAL
[2019-08-20] MEDS ORDERED: SODIUM POLYSTYRENE SULFONATE 15 G/60 ML BOT PO NR (17:30)
[2019-08-20] MEDS ORDERED: METOLAZONE 10MG TABLET PO NR (20:15)
[2019-08-20] MEDS: MORPHINE SULFATE 2 MG/ML CPJ (NOT FOR IM USE) IV PRN (20:55)
[2019-08-20] MEDS ORDERED: BUMETANIDE 2.5MG/10ML VIAL IV NR (21:30)
[2019-08-20] MEDS ORDERED: NALOXONE HCL 1 MG/ML 2ML VIAL ONE (21:50)
[2019-08-20 21:55] LABS: BG BASE EXCESS -3.7 mmol/L (-2.0-2.0); BG CARBOXYHEMOGLOBIN 0.1 % (0.5-1.5); BG DEOXYHEMOGLOBIN 17.9 % (0.0-5.0); BG FRACTION INSPIRED OXYGEN 98; BG HCO3 ACT 26.6 mmol/L (22.0-26.0); BG METHEMOGLOBIN 0.1 % (0.0-1.5); BG OXYGEN SATURATION 82.1 % (92.0-98.5); BG OXYHEMOGLOBIN 81.9 % (94.0-97.0); BG PCO2 77.8 mmHg (35.0-45.0); BG PH 7.151 (7.350-7.450); BG PO2 61.9 mmHg (75.0-100.0); BG SAMPLE SITE A-LINE; BG TOTAL HEMOGLOBIN 12.1 g/dL (12.0-18.0); BG VENT MODE MASK - AEROSOL
[2019-08-20] MEDS ORDERED: NALOXONE HCL 1 MG/ML 2ML VIAL IV NR (21:58)
[2019-08-20] MEDS ORDERED: CALCIUM CHLORIDE 1GM/10ML SYR IV ONE (22:10)
[2019-08-20] MEDS ORDERED: DEXTROSE 50% WATER 50ML VIAL IV ONE (22:10)
[2019-08-20] MEDS ORDERED: LIDOCAINE HCL 2% 5ML SYRINGE IV ONE (22:10)
[2019-08-20] MEDS ORDERED: EPINEPHRINE 0.1MG/ML (1:10,000) 10ML SYR ONE (22:10)
[2019-08-20] MEDS ORDERED: SODIUM BICARBONATE 8.4% MEQ/ML 50ML VIAL IV ONE (22:10)
[2019-08-20] MEDS ORDERED: SODIUM BICARBONATE 8.4% 1 MEQ/ML 50ML SYR IV NR (22:30)
[2019-08-20] MEDS ORDERED: EPINEPHRINE 0.1MG/ML (1:10,000) 10ML SYR IV NR (22:41)
[2019-08-20 23:04] LABS: BG CARBOXYHEMOGLOBIN 0.5 % (0.5-1.5); BG DEOXYHEMOGLOBIN 2.4 % (0.0-5.0); BG FRACTION INSPIRED OXYGEN 100; BG METHEMOGLOBIN 0.2 % (0.0-1.5); BG OXYGEN SATURATION 97.6 % (92.0-98.5); BG OXYHEMOGLOBIN 96.9 % (94.0-97.0); BG PCO2 41.2 mmHg (35.0-45.0); BG PH 7.384 (7.350-7.450); BG PO2 108.7 mmHg (75.0-100.0); BG SAMPLE SITE A-LINE; BG TIDAL VOLUME(mL) 550 mL; BG VENT MODE VENT - A/C; BG VENT RATE 16 set
[2019-08-20 23:28] LABS: HEMATOCRIT 34.1 % (42.0-52.0); HEMOGLOBIN 10.8 g/dL (14.0-18.0); MEAN CORPUSCULAR HEMOGLOBIN 29.2 pg (28.0-32.0); MEAN CORPUSCULAR VOLUME 92.1 fL (80.0-94.0); PLATELET 174 x1000/uL (130-400)
[2019-08-20 23:41] LABS: PHOSPHORUS 5.8 mg/dL (2.5-4.9)
[2019-08-20] MEDS: MAGNESIUM 1 G PREMIX 100 ML IV PRN (23:44)
[2019-08-21] VITALS (112 sets, daily range): BP systolic 42–259; BP diastolic 35–166
[2019-08-21] MEDS: IPRATROPIUM/ALBUTEROL 0.5-3(2.5)MG/3ML NEB HHN SCH ×5 (01:09→20:13)
[2019-08-21 01:14] LABS: BG BASE EXCESS 0.8 mmol/L (-2.0-2.0); BG CARBOXYHEMOGLOBIN 0.4 % (0.5-1.5); BG DEOXYHEMOGLOBIN 5.1 % (0.0-5.0); BG FRACTION INSPIRED OXYGEN 80; BG HCO3 ACT 27.6 mmol/L (22.0-26.0); BG METHEMOGLOBIN 0.2 % (0.0-1.5); BG OXYGEN SATURATION 94.9 % (92.0-98.5); BG OXYHEMOGLOBIN 94.3 % (94.0-97.0); BG PCO2 53.9 mmHg (35.0-45.0); BG PH 7.327 (7.350-7.450); BG PO2 81.5 mmHg (75.0-100.0); BG SAMPLE SITE A-LINE; BG TIDAL VOLUME(mL) 550 mL; BG TOTAL HEMOGLOBIN 12.1 g/dL (12.0-18.0); BG VENT MODE VENT - A/C; BG VENT RATE 16 set
[2019-08-21] MEDS ORDERED: MINERAL OIL 30ML BOTTLE PO SCH ×2 (01:15→12:45)
[2019-08-21] MEDS ORDERED: AMIODARONE HCL 50MG/ML 3ML VIAL IV SCH ×2 (01:45→22:00)
[2019-08-21] MEDS ORDERED: AMIODARONE HCL 150 MG in DEXT 5% WATER 100 ML IV SCH ×2 (02:00→14:00)
[2019-08-21 02:01] LABS: HEMATOCRIT 34.8 % (42.0-52.0); HEMOGLOBIN 11.1 g/dL (14.0-18.0)
[2019-08-21] MEDS ORDERED: LORAZEPAM 2MG/ML CPJ IV PRN (03:00)
[2019-08-21] MEDS: DEXT 5%/0.45% NACL 1000ML 1,000 ML IV SCH ×2 (03:24→17:14)
[2019-08-21] MEDS: MIDODRINE HCL 5MG TABLET PO SCH ×3 (06:00→21:00)
[2019-08-21 06:04] LABS: HEMATOCRIT. 34.2 % (42.0-52.0); HEMOGLOBIN. 11.1 g/dL (14.0-18.0); MEAN CORPUSCULAR HEMOGLOBIN 29.5 pg (28.0-32.0); MEAN CORPUSCULAR VOLUME 90.7 fL (80.0-94.0); MEAN PLATELET VOLUME 9.6 fl (7.4-10.4); PLATELET 175 x1000/uL (130-400); RED BLOOD CELL COUNT 3.77 mill/uL (4.7-6.1); RED CELL DISTRIBUTION WIDTH 16.9 % (11.6-14.6)
[2019-08-21 06:05] LABS: CHLORIDE 103 mEq/L (98-107)
[2019-08-21 06:12] LABS: PHOSPHORUS 4.9 mg/dL (2.5-4.9)
[2019-08-21] MEDS: SODIUM CHLORIDE 0.9% INJ 3ML FLUSH IVF SCH ×3 (06:17→21:22)
[2019-08-21] MEDS: BLOOD SUGAR DIAGNOSTIC STRIP TEST SCH ×4 (07:50→20:35)
[2019-08-21] MEDS ORDERED: MAGNESIUM 2 G PREMIX 50 ML IV SCH (08:00)
[2019-08-21] MEDS ORDERED: KCL 20MEQ/100ML PREMIX 100 ML IV SCH (08:00)
[2019-08-21] MEDS: GLYBURIDE 5MG TABLET PO SCH (08:10)
[2019-08-21] MEDS: FAMOTIDINE 20MG TABLET PO SCH ×2 (08:10→20:55)
[2019-08-21] MEDS: CLOPIDOGREL 75MG TABLET PO SCH (08:10)
[2019-08-21] MEDS: DOCUSATE SODIUM 100MG CAPSULE PO SCH (08:10)
[2019-08-21] MEDS: ASPIRIN 81MG EC TABLET PO SCH (08:10)
[2019-08-21] MEDS: TAMSULOSIN HCL 0.4MG SR CAPSULE PO SCH (08:10)
[2019-08-21] MEDS: SERTRALINE HCL 50MG TABLET PO SCH (08:10)
[2019-08-21] MEDS: FUROSEMIDE 100 MG in DEXT 5% WATER 90 ML IV SCH ×2 (08:11→20:33)
[2019-08-21] MEDS: HEPARIN 5000 UNITS/ML VIAL SUBCUT SCH ×2 (08:11→20:35)
[2019-08-21] MEDS: INSULIN LISPRO 100 UNITS/ML SUBCUT SCH ×4 (08:14→20:36)
[2019-08-21] MEDS: BACITRACIN 15GM TUBE TOP SCH ×2 (08:33→17:13)
[2019-08-21] MEDS: DOPAMINE 400MG/250ML PREMIX 250 ML IV SCH (09:00)
[2019-08-21 09:11] LABS: *CREATININE RANDOM URINE 92.9 mg/dL (Not Estab.); MICROALBUMIN RANDOM URINE 171.6 ug/mL (Not Estab.)
[2019-08-21 09:59] LABS: BG BASE EXCESS 1.7 mmol/L (-2.0-2.0); BG CARBOXYHEMOGLOBIN 0.4 % (0.5-1.5); BG DEOXYHEMOGLOBIN 1.4 % (0.0-5.0); BG FRACTION INSPIRED OXYGEN 80; BG HCO3 ACT 25.6 mmol/L (22.0-26.0); BG METHEMOGLOBIN 0.2 % (0.0-1.5); BG OXYGEN SATURATION 98.6 % (92.0-98.5); BG PCO2 37.8 mmHg (35.0-45.0); BG PH 7.449 (7.350-7.450); BG PO2 129.8 mmHg (75.0-100.0); BG SAMPLE SITE A-LINE; BG TIDAL VOLUME(mL) 600 mL; BG TOTAL HEMOGLOBIN 11.6 g/dL (12.0-18.0); BG VENT MODE VENT - A/C; BG VENT RATE 16 set
[2019-08-21 11:38] LABS: PLATELET ESTIMATE NORMAL
[2019-08-21] MEDS ORDERED: KCL 20MEQ/100ML PREMIX 100 ML IV ONE ×2 (12:45)
[2019-08-21] MEDS ORDERED: POTASSIUM CHLORIDE INJ 40 MEQ in DEXT 5% WATER 250 ML IV SCH (13:00)
[2019-08-21] MEDS ORDERED: AMIODARONE HCL 50MG/ML 9ML VIAL IV ONE (13:15)
[2019-08-21] MEDS ORDERED: AMIODARONE HCL 50MG/ML 3ML VIAL IV ONE (13:15)
[2019-08-21] MEDS ORDERED: LIDOCAINE HCL/PF 1% 10 MG/ML 5ML VIAL ONE ×2 (13:30→13:36)
[2019-08-21] MEDS ORDERED: AMIODARONE HCL 900 MG in DEXT 5% WATER 500 ML IV SCH (14:00)
[2019-08-21 14:23] LABS: BG BASE EXCESS 7.3 mmol/L (-2.0-2.0); BG CARBOXYHEMOGLOBIN 0.2 % (0.5-1.5); BG DEOXYHEMOGLOBIN 7.4 % (0.0-5.0); BG FRACTION INSPIRED OXYGEN 50; BG HCO3 ACT 30.8 mmol/L (22.0-26.0); BG METHEMOGLOBIN 0.3 % (0.0-1.5); BG OXYGEN SATURATION 92.6 % (92.0-98.5); BG OXYHEMOGLOBIN 92.1 % (94.0-97.0); BG PCO2 39.6 mmHg (35.0-45.0); BG PH 7.509 (7.350-7.450); BG PO2 59.3 mmHg (75.0-100.0); BG SAMPLE SITE A-LINE; BG TIDAL VOLUME(mL) 500 mL; BG TOTAL HEMOGLOBIN 11.8 g/dL (12.0-18.0); BG VENT MODE VENT - A/C; BG VENT RATE 16 set
[2019-08-21] MEDS ORDERED: LIDOCAINE HCL/PF 1% 10 MG/ML 5ML VIAL IJ SCH ×2 (14:30)
[2019-08-21 16:34] LABS: BG CARBOXYHEMOGLOBIN 0.7 % (0.5-1.5); BG DEOXYHEMOGLOBIN 5.4 % (0.0-5.0); BG FRACTION INSPIRED OXYGEN 60; BG METHEMOGLOBIN 0.3 % (0.0-1.5); BG OXYGEN SATURATION 94.5 % (92.0-98.5); BG OXYHEMOGLOBIN 93.6 % (94.0-97.0); BG PCO2 42.3 mmHg (35.0-45.0); BG PH 7.497 (7.350-7.450); BG PRESSURE SUPPORT 10; BG SAMPLE SITE A-LINE; BG TIDAL VOLUME(mL) 550 mL; BG VENT MODE VENT - SIMV; BG VENT RATE 14 set
[2019-08-21] MEDS ORDERED: DOCUSATE SODIUM 100MG CAPSULE NG SCH (17:00)
[2019-08-21] MEDS: DOCUSATE SODIUM SUGAR FREE 100MG/10ML UDC NG SCH (17:13)
[2019-08-21] MEDS ORDERED: POTASSIUM CHLORIDE INJ 40 MEQ in DEXT 5% WATER 250 ML IV NR (21:00)
[2019-08-21] MEDS ORDERED: AMIODARONE HCL 150 MG in DEXT 5% WATER 100 ML IV NR (21:00)
[2019-08-21] MEDS ORDERED: AMIODARONE HCL 200 MG TABLET PO SCH (21:00)
[2019-08-21 22:32] LABS: BG BASE EXCESS 7.9 mmol/L (-2.0-2.0); BG DEOXYHEMOGLOBIN 2.2 % (0.0-5.0); BG FRACTION INSPIRED OXYGEN 60; BG METHEMOGLOBIN 0.1 % (0.0-1.5); BG OXYGEN SATURATION 97.8 % (92.0-98.5); BG OXYHEMOGLOBIN 97.7 % (94.0-97.0); BG PCO2 37.4 mmHg (35.0-45.0); BG PH 7.536 (7.350-7.450); BG PO2 102.9 mmHg (75.0-100.0); BG SAMPLE SITE A-LINE; BG TIDAL VOLUME(mL) 550 mL; BG TOTAL HEMOGLOBIN 11.6 g/dL (12.0-18.0); BG VENT MODE VENT - SIMV; BG VENT RATE 14 set
[2019-08-22] VITALS (61 sets, daily range): BP systolic 90–153; BP diastolic 31–89
[2019-08-22] MEDS: IPRATROPIUM/ALBUTEROL 0.5-3(2.5)MG/3ML NEB HHN SCH ×6 (00:16→21:03)
[2019-08-22 01:39] LABS: HEMATOCRIT. 33.9 % (42.0-52.0); MEAN CORPUSCULAR HEMOGLOBIN 29.2 pg (28.0-32.0); MEAN CORPUSCULAR VOLUME 90.3 fL (80.0-94.0); MEAN PLATELET VOLUME 9.4 fl (7.4-10.4); PLATELET 172 x1000/uL (130-400); RED BLOOD CELL COUNT 3.76 mill/uL (4.7-6.1); RED CELL DISTRIBUTION WIDTH 16.7 % (11.6-14.6)
[2019-08-22 01:45] LABS: CHLORIDE 101 mEq/L (98-107)
[2019-08-22 02:21] LABS: PLATELET ESTIMATE NORMAL
[2019-08-22] MEDS ORDERED: POTASSIUM CHLORIDE INJ 30 MEQ in DEXT 5% WATER 235 ML IV SCH (02:30)
[2019-08-22] MEDS ORDERED: MAGNESIUM 2 G PREMIX 50 ML IV SCH (02:30)
[2019-08-22 05:10] LABS: BG BASE EXCESS 6.7 mmol/L (-2.0-2.0); BG CARBOXYHEMOGLOBIN 0.1 % (0.5-1.5); BG DEOXYHEMOGLOBIN 2.6 % (0.0-5.0); BG FRACTION INSPIRED OXYGEN 50; BG HCO3 ACT 29.6 mmol/L (22.0-26.0); BG METHEMOGLOBIN 0.1 % (0.0-1.5); BG OXYGEN SATURATION 97.4 % (92.0-98.5); BG OXYHEMOGLOBIN 97.2 % (94.0-97.0); BG PCO2 35.8 mmHg (35.0-45.0); BG PH 7.535 (7.350-7.450); BG PO2 94.3 mmHg (75.0-100.0); BG SAMPLE SITE A-LINE; BG TIDAL VOLUME(mL) 550 mL; BG TOTAL HEMOGLOBIN 11.5 g/dL (12.0-18.0); BG VENT MODE VENT - SIMV; BG VENT RATE 10 set
[2019-08-22 06:28] LABS: BG BASE EXCESS 9.3 mmol/L (-2.0-2.0); BG CARBOXYHEMOGLOBIN 0.1 % (0.5-1.5); BG DEOXYHEMOGLOBIN 2.9 % (0.0-5.0); BG FRACTION INSPIRED OXYGEN 50; BG HCO3 ACT 33.1 mmol/L (22.0-26.0); BG METHEMOGLOBIN 0.1 % (0.0-1.5); BG OXYGEN SATURATION 97.1 % (92.0-98.5); BG OXYHEMOGLOBIN 96.9 % (94.0-97.0); BG PCO2 41.9 mmHg (35.0-45.0); BG PH 7.515 (7.350-7.450); BG PRESSURE SUPPORT 15; BG SAMPLE SITE A-LINE; BG TOTAL HEMOGLOBIN 11.4 g/dL (12.0-18.0); BG VENT MODE VENT - CPAP
[2019-08-22] MEDS: SODIUM CHLORIDE 0.9% INJ 3ML FLUSH IVF SCH ×3 (06:30→20:35)
[2019-08-22] MEDS: MIDODRINE HCL 5MG TABLET PO SCH ×3 (06:33→20:35)
[2019-08-22 06:56] LABS: HEMATOCRIT. 32.5 % (42.0-52.0); HEMOGLOBIN. 10.6 g/dL (14.0-18.0); MEAN CORPUSCULAR HEMOGLOBIN 29.5 pg (28.0-32.0); MEAN PLATELET VOLUME 9.6 fl (7.4-10.4); PLATELET 165 x1000/uL (130-400); RED BLOOD CELL COUNT 3.61 mill/uL (4.7-6.1); RED CELL DISTRIBUTION WIDTH 16.3 % (11.6-14.6)
[2019-08-22 07:19] LABS: CHLORIDE 100 mEq/L (98-107)
[2019-08-22 07:26] LABS: PHOSPHORUS 2.9 mg/dL (2.5-4.9)
[2019-08-22] MEDS: KCL 10MEQ/50ML PREMIX 200 ML IV PRN ×2 (08:02→16:12)
[2019-08-22] MEDS ORDERED: LIDOCAINE HCL 1% 20ML VIAL (Pyxis) INJ ONE (08:40)
[2019-08-22] MEDS: INSULIN LISPRO 100 UNITS/ML SUBCUT SCH ×4 (08:40→23:31)
[2019-08-22] MEDS: BLOOD SUGAR DIAGNOSTIC STRIP TEST SCH ×4 (08:40→23:29)
[2019-08-22] MEDS: DOCUSATE SODIUM SUGAR FREE 100MG/10ML UDC NG SCH ×2 (08:50→17:13)
[2019-08-22] MEDS: GLYBURIDE 5MG TABLET PO SCH (08:51)
[2019-08-22] MEDS: CLOPIDOGREL 75MG TABLET PO SCH (08:51)
[2019-08-22] MEDS: HALOPERIDOL 5MG TABLET PO PRN (08:51)
[2019-08-22] MEDS: FAMOTIDINE 20MG TABLET PO SCH ×2 (08:51→20:35)
[2019-08-22] MEDS: METHYLPHENIDATE HCL 5MG TABLET PO SCH ×2 (08:51→17:13)
[2019-08-22] MEDS: SERTRALINE HCL 50MG TABLET PO SCH (08:51)
[2019-08-22] MEDS: TAMSULOSIN HCL 0.4MG SR CAPSULE PO SCH (08:51)
[2019-08-22] MEDS: ASPIRIN 81MG EC TABLET PO SCH (08:51)
[2019-08-22] MEDS: BACITRACIN 15GM TUBE TOP SCH ×2 (08:52→17:13)
[2019-08-22] MEDS: MAGNESIUM 1 G PREMIX 100 ML IV PRN ×2 (09:01→16:12)
[2019-08-22 09:07] LABS: NUCLEATED RED BLOOD CELLS 1 /100 WBC
[2019-08-22 09:08] LABS: PLATELET ESTIMATE NORMAL
[2019-08-22 09:11] LABS: BG BASE EXCESS 6.2 mmol/L (-2.0-2.0); BG CARBOXYHEMOGLOBIN 0.3 % (0.5-1.5); BG DEOXYHEMOGLOBIN 1.9 % (0.0-5.0); BG FRACTION INSPIRED OXYGEN 35; BG HCO3 ACT 29.6 mmol/L (22.0-26.0); BG METHEMOGLOBIN 0.3 % (0.0-1.5); BG OXYGEN SATURATION 98.1 % (92.0-98.5); BG OXYHEMOGLOBIN 97.5 % (94.0-97.0); BG PCO2 38.5 mmHg (35.0-45.0); BG PH 7.504 (7.350-7.450); BG PO2 109.9 mmHg (75.0-100.0); BG SAMPLE SITE A-LINE; BG TOTAL HEMOGLOBIN 11.5 g/dL (12.0-18.0); BG VENT MODE MASK - AEROSOL
[2019-08-22] MEDS: INSULIN GLARGINE UD 100 UNITS/ML SYR SUBCUT SCH ×2 (10:45→22:00)
[2019-08-22] MEDS ORDERED: FUROSEMIDE 100 MG in DEXT 5% WATER 90 ML IV SCH (15:00)
[2019-08-22] MEDS: DEXT 5%/0.45% NACL 1000ML 1,000 ML IV SCH (16:29)
[2019-08-22] MEDS: APIXABAN 5 MG TABLET PO SCH (17:13)
[2019-08-22] MEDS: HYDROCODONE/ACETAMINOPHEN 5/325MG TABLET PO PRN (20:30)
[2019-08-23] VITALS (26 sets, daily range): BP systolic 81–125; BP diastolic 44–79
[2019-08-23] MEDS: HYDROCODONE/ACETAMINOPHEN 5/325MG TABLET PO PRN ×2 (00:15→07:56)
[2019-08-23] MEDS: KCL 10MEQ/50ML PREMIX 50 ML IV SCH ×4 (01:38→05:12)
[2019-08-23] MEDS: IPRATROPIUM/ALBUTEROL 0.5-3(2.5)MG/3ML NEB HHN SCH ×6 (01:42→21:28)
[2019-08-23] MEDS: SODIUM CHLORIDE 0.9% INJ 3ML FLUSH IVF SCH ×3 (05:00→21:15)
[2019-08-23] MEDS: MIDODRINE HCL 5MG TABLET PO SCH ×3 (05:12→22:17)
[2019-08-23] MEDS: INSULIN LISPRO 100 UNITS/ML SUBCUT SCH ×3 (05:13→17:17)
[2019-08-23] MEDS: BLOOD SUGAR DIAGNOSTIC STRIP TEST SCH ×3 (05:14→17:09)
[2019-08-23] MEDS ORDERED: ALBUMIN HUMAN 25GM/100ML (25%) IV NR (07:02)
[2019-08-23 07:40] LABS: HEMATOCRIT. 31.3 % (42.0-52.0); HEMOGLOBIN. 10.3 g/dL (14.0-18.0); MEAN CORPUSCULAR HEMOGLOBIN 29.7 pg (28.0-32.0); MEAN CORPUSCULAR VOLUME 90.5 fL (80.0-94.0); PLATELET 146 x1000/uL (130-400); RED BLOOD CELL COUNT 3.46 mill/uL (4.7-6.1); RED CELL DISTRIBUTION WIDTH 16.9 % (11.6-14.6)
[2019-08-23] MEDS: DOCUSATE SODIUM SUGAR FREE 100MG/10ML UDC NG SCH ×2 (07:56→17:09)
[2019-08-23] MEDS: AMIODARONE HCL 200 MG TABLET PO SCH ×2 (07:56→21:15)
[2019-08-23] MEDS: FUROSEMIDE 40MG TABLET PO SCH ×2 (07:56→21:15)
[2019-08-23] MEDS: ASPIRIN 81MG EC TABLET PO SCH (07:57)
[2019-08-23] MEDS: CLOPIDOGREL 75MG TABLET PO SCH (07:57)
[2019-08-23] MEDS: METHYLPHENIDATE HCL 5MG TABLET PO SCH ×2 (07:57→17:09)
[2019-08-23] MEDS: TAMSULOSIN HCL 0.4MG SR CAPSULE PO SCH (07:57)
[2019-08-23] MEDS: SERTRALINE HCL 50MG TABLET PO SCH (07:57)
[2019-08-23] MEDS: FAMOTIDINE 20MG TABLET PO SCH ×2 (07:57→21:15)
[2019-08-23] MEDS: BACITRACIN 15GM TUBE TOP SCH ×2 (08:00→17:09)
[2019-08-23 09:20] LABS: PHOSPHORUS 2.6 mg/dL (2.5-4.9)
[2019-08-23] MEDS: KCL 10MEQ/50ML PREMIX 150 ML IV PRN ×2 (09:46→18:51)
[2019-08-23] MEDS: INSULIN GLARGINE UD 100 UNITS/ML SYR SUBCUT SCH ×2 (11:32→22:17)
[2019-08-23] MEDS: ALBUMIN HUMAN 25GM/100ML (25%) IV SCH ×3 (11:34→17:00)
[2019-08-23 12:16] LABS: PLATELET ESTIMATE NORMAL
[2019-08-23] MEDS: MAGNESIUM 1 G PREMIX 100 ML IV PRN (14:51)
[2019-08-23] MEDS: APIXABAN 5 MG TABLET PO SCH (17:09)
[2019-08-24] VITALS (16 sets, daily range): BP systolic 89–157; BP diastolic 55–100
[2019-08-24] MEDS: INSULIN LISPRO 100 UNITS/ML SUBCUT SCH ×4 (00:18→16:25)
[2019-08-24] MEDS: BLOOD SUGAR DIAGNOSTIC STRIP TEST SCH ×4 (00:18→16:25)
[2019-08-24] MEDS: HYDROCODONE/ACETAMINOPHEN 5/325MG TABLET PO PRN ×3 (00:23→20:29)
[2019-08-24] MEDS: IPRATROPIUM/ALBUTEROL 0.5-3(2.5)MG/3ML NEB HHN SCH ×7 (00:58→23:06)
[2019-08-24] MEDS: MIDODRINE HCL 5MG TABLET PO SCH ×4 (05:42→22:42)
[2019-08-24] MEDS: SODIUM CHLORIDE 0.9% INJ 3ML FLUSH IVF SCH ×3 (05:51→22:42)
[2019-08-24 06:54] LABS: BASOPHILS % 0.2 % (0.0-2.0); EOSINOPHILS % 0.5 % (0.0-5.0); HEMATOCRIT. 30.1 % (42.0-52.0); HEMOGLOBIN. 9.7 g/dL (14.0-18.0); LYMPHOCYTES % 7.8 % (20.0-50.0); MEAN CORPUSCULAR HEMOGLOBIN 29.1 pg (28.0-32.0); MEAN CORPUSCULAR VOLUME 90.6 fL (80.0-94.0); MEAN PLATELET VOLUME 10.4 fl (7.4-10.4); MONOCYTES % 5.9 % (2.0-8.0); NEUTROPHILS % 85.6 % (40.0-76.0); PLATELET 137 x1000/uL (130-400); RED BLOOD CELL COUNT 3.32 mill/uL (4.7-6.1); RED CELL DISTRIBUTION WIDTH 17.1 % (11.6-14.6)
[2019-08-24 07:02] LABS: PHOSPHORUS 2.7 mg/dL (2.5-4.9)
[2019-08-24] MEDS ORDERED: BUMETANIDE 1MG/4ML VIAL IV SCH (07:45)
[2019-08-24] MEDS: TAMSULOSIN HCL 0.4MG SR CAPSULE PO SCH (09:00)
[2019-08-24] MEDS: ASPIRIN 81MG EC TABLET PO SCH (09:00)
[2019-08-24] MEDS: SERTRALINE HCL 50MG TABLET PO SCH (09:00)
[2019-08-24] MEDS: AMIODARONE HCL 200 MG TABLET PO SCH ×2 (09:00→20:27)
[2019-08-24] MEDS: DOCUSATE SODIUM SUGAR FREE 100MG/10ML UDC NG SCH ×2 (09:00→16:39)
[2019-08-24] MEDS: FUROSEMIDE 40MG TABLET PO SCH ×2 (09:00→20:27)
[2019-08-24] MEDS: CLOPIDOGREL 75MG TABLET PO SCH (09:00)
[2019-08-24] MEDS: FAMOTIDINE 20MG TABLET PO SCH ×2 (09:00→20:28)
[2019-08-24] MEDS: METHYLPHENIDATE HCL 5MG TABLET PO SCH ×2 (09:00→16:39)
[2019-08-24] MEDS: BACITRACIN 15GM TUBE TOP SCH ×2 (09:00→16:58)
[2019-08-24] MEDS: INSULIN GLARGINE UD 100 UNITS/ML SYR SUBCUT SCH ×2 (11:57→22:43)
[2019-08-24] MEDS ORDERED: BISACODYL 10MG SUPP PR PRN (12:00)
[2019-08-24] MEDS: METOCLOPRAMIDE HCL 10MG/2ML VIAL IV SCH ×2 (12:18→17:00)
[2019-08-24] MEDS: APIXABAN 5 MG TABLET PO SCH (16:39)
[2019-08-24] MEDS ORDERED: BUMETANIDE 1MG/4ML VIAL IV NR (23:45)
[2019-08-25] VITALS (12 sets, daily range): BP systolic 102–134; BP diastolic 48–96
[2019-08-25] MEDS: METOCLOPRAMIDE HCL 10MG/2ML VIAL IV SCH ×4 (02:40→18:00)
[2019-08-25] MEDS: IPRATROPIUM/ALBUTEROL 0.5-3(2.5)MG/3ML NEB HHN SCH ×5 (04:20→20:36)
[2019-08-25] MEDS: INSULIN LISPRO 100 UNITS/ML SUBCUT SCH ×4 (06:00→17:58)
[2019-08-25] MEDS: HYDROCODONE/ACETAMINOPHEN 5/325MG TABLET PO PRN ×2 (06:39→21:48)
[2019-08-25] MEDS: MIDODRINE HCL 5MG TABLET PO SCH ×3 (06:40→21:48)
[2019-08-25] MEDS: BLOOD SUGAR DIAGNOSTIC STRIP TEST SCH ×4 (06:41→17:58)
[2019-08-25] MEDS: SODIUM CHLORIDE 0.9% INJ 3ML FLUSH IVF SCH ×2 (06:41→15:55)
[2019-08-25] MEDS: DOCUSATE SODIUM SUGAR FREE 100MG/10ML UDC NG SCH ×3 (09:00→17:00)
[2019-08-25] MEDS: BACITRACIN 15GM TUBE TOP SCH ×2 (09:00→17:58)
[2019-08-25] MEDS: SERTRALINE HCL 50MG TABLET PO SCH (09:00)
[2019-08-25] MEDS: CLOPIDOGREL 75MG TABLET PO SCH (09:20)
[2019-08-25] MEDS: ASPIRIN 81MG EC TABLET PO SCH (09:20)
[2019-08-25] MEDS: FAMOTIDINE 20MG TABLET PO SCH (09:20)
[2019-08-25] MEDS: FUROSEMIDE 40MG TABLET PO SCH (09:20)
[2019-08-25] MEDS: TAMSULOSIN HCL 0.4MG SR CAPSULE PO SCH (09:20)
[2019-08-25] MEDS: METHYLPHENIDATE HCL 5MG TABLET PO SCH ×2 (09:20→17:00)
[2019-08-25] MEDS: DEXT 5%/0.45% NACL 1000ML 1,000 ML IV SCH (09:21)
[2019-08-25] MEDS: AMIODARONE HCL 200 MG TABLET PO SCH ×2 (09:21→21:48)
[2019-08-25] MEDS ORDERED: METOLAZONE 5MG TABLET PO NR (10:00)
[2019-08-25] MEDS: HALOPERIDOL 5MG TABLET PO PRN (10:56)
[2019-08-25 10:57] LABS: BG BASE EXCESS 13.1 mmol/L (-2.0-2.0); BG CARBOXYHEMOGLOBIN 0.6 % (0.5-1.5); BG DEOXYHEMOGLOBIN 9.1 % (0.0-5.0); BG FRACTION INSPIRED OXYGEN 40; BG HCO3 ACT 36.9 mmol/L (22.0-26.0); BG METHEMOGLOBIN 0.1 % (0.0-1.5); BG OXYGEN SATURATION 90.8 % (92.0-98.5); BG OXYHEMOGLOBIN 90.2 % (94.0-97.0); BG PCO2 43.4 mmHg (35.0-45.0); BG PH 7.547 (7.350-7.450); BG PO2 56.8 mmHg (75.0-100.0); BG SAMPLE SITE RIGHT BRACHIAL; BG TOTAL HEMOGLOBIN 10.4 g/dL (12.0-18.0); BG VENT MODE NASAL CANNULA
[2019-08-25 11:47] LABS: HEMATOCRIT. 29.6 % (42.0-52.0); HEMOGLOBIN. 9.7 g/dL (14.0-18.0); MEAN CORPUSCULAR HEMOGLOBIN 29.2 pg (28.0-32.0); MEAN CORPUSCULAR VOLUME 89.5 fL (80.0-94.0); MEAN PLATELET VOLUME 9.9 fl (7.4-10.4); PLATELET 171 x1000/uL (130-400); RED BLOOD CELL COUNT 3.31 mill/uL (4.7-6.1); RED CELL DISTRIBUTION WIDTH 16.9 % (11.6-14.6)
[2019-08-25] MEDS ORDERED: BUMETANIDE 2.5MG/10ML VIAL IV NR (12:00)
[2019-08-25 12:01] LABS: CHLORIDE 94 mEq/L (98-107)
[2019-08-25 12:08] LABS: PHOSPHORUS 2.9 mg/dL (2.5-4.9)
[2019-08-25 12:48] LABS: INR 1.5; PROTHROMBIN TIME 16.1 sec (9.6-11.0)
[2019-08-25] MEDS: PANTOPRAZOLE SODIUM 40 MG/VIAL IV SCH ×2 (13:05→21:46)
[2019-08-25 13:08] LABS: NUCLEATED RED BLOOD CELLS 1 /100 WBC
[2019-08-25 13:09] LABS: PLATELET ESTIMATE NORMAL
[2019-08-25] MEDS: KCL 20MEQ/100ML PREMIX 100 ML IV SCH ×3 (13:28→17:49)
[2019-08-25] MEDS: APIXABAN 5 MG TABLET PO SCH (17:00)
[2019-08-26] VITALS (8 sets, daily range): BP systolic 92–125; BP diastolic 26–93
[2019-08-26] MEDS: BLOOD SUGAR DIAGNOSTIC STRIP TEST SCH ×4 (00:41→18:00)
[2019-08-26] MEDS: METOCLOPRAMIDE HCL 10MG/2ML VIAL IV SCH ×4 (00:41→17:58)
[2019-08-26] MEDS: POTASSIUM CHLORIDE INJ 40 MEQ in DEXT 5% WATER 250 ML IV SCH ×2 (01:00→06:01)
[2019-08-26] MEDS: SODIUM CHLORIDE 0.9% INJ 3ML FLUSH IVF SCH ×4 (01:22→21:23)
[2019-08-26] MEDS: IPRATROPIUM/ALBUTEROL 0.5-3(2.5)MG/3ML NEB HHN SCH ×3 (02:14→16:56)
[2019-08-26] MEDS: ACETYLCYSTEINE 100MG/ML 10% VIAL 4ML INH SCH ×2 (02:15→08:51)
[2019-08-26] MEDS: INSULIN LISPRO 100 UNITS/ML SUBCUT SCH ×4 (06:00→18:00)
[2019-08-26] MEDS: DEXT 5%/0.45% NACL 1000ML 1,000 ML IV SCH (06:05)
[2019-08-26] MEDS ORDERED: MAGNESIUM 2 G PREMIX 50 ML IV SCH (08:00)
[2019-08-26 08:27] LABS: BG BASE EXCESS 12.7 mmol/L (-2.0-2.0); BG CARBOXYHEMOGLOBIN 0.3 % (0.5-1.5); BG DEOXYHEMOGLOBIN 6.6 % (0.0-5.0); BG HCO3 ACT 36.6 mmol/L (22.0-26.0); BG METHEMOGLOBIN 0.2 % (0.0-1.5); BG OXYGEN SATURATION 93.4 % (92.0-98.5); BG OXYHEMOGLOBIN 92.9 % (94.0-97.0); BG PCO2 44.6 mmHg (35.0-45.0); BG PH 7.532 (7.350-7.450); BG PO2 66.3 mmHg (75.0-100.0); BG SAMPLE SITE RIGHT RADIAL; BG TOTAL HEMOGLOBIN 9.3 g/dL (12.0-18.0); BG VENT MODE NASAL CANNULA
[2019-08-26 08:52] LABS: HEMATOCRIT. 28.6 % (42.0-52.0); HEMOGLOBIN. 9.3 g/dL (14.0-18.0); MEAN CORPUSCULAR HEMOGLOBIN 29.4 pg (28.0-32.0); MEAN CORPUSCULAR VOLUME 90.2 fL (80.0-94.0); MEAN PLATELET VOLUME 10.4 fl (7.4-10.4); PLATELET 179 x1000/uL (130-400); RED BLOOD CELL COUNT 3.17 mill/uL (4.7-6.1); RED CELL DISTRIBUTION WIDTH 17.5 % (11.6-14.6)
[2019-08-26 08:59] LABS: PHOSPHORUS 3.7 mg/dL (2.5-4.9)
[2019-08-26] MEDS ORDERED: KCL 20MEQ/100ML PREMIX 100 ML IV ONE (09:00)
[2019-08-26 09:04] LABS: FERRITIN 569 ng/mL (22-322)
[2019-08-26] MEDS: HYDROCODONE/ACETAMINOPHEN 5/325MG TABLET PO PRN ×2 (09:54→17:58)
[2019-08-26] MEDS: PANTOPRAZOLE SODIUM 40 MG/VIAL IV SCH ×2 (10:18→21:22)
[2019-08-26] MEDS: DOCUSATE SODIUM SUGAR FREE 100MG/10ML UDC NG SCH ×2 (10:18→17:58)
[2019-08-26] MEDS: CLOPIDOGREL 75MG TABLET PO SCH (10:19)
[2019-08-26] MEDS: ASPIRIN 81MG EC TABLET PO SCH (10:19)
[2019-08-26] MEDS: SERTRALINE HCL 50MG TABLET PO SCH (10:19)
[2019-08-26] MEDS: METHYLPHENIDATE HCL 5MG TABLET PO SCH ×2 (10:19→17:58)
[2019-08-26] MEDS: AMIODARONE HCL 200 MG TABLET PO SCH ×2 (10:19→21:22)
[2019-08-26] MEDS: MIDODRINE HCL 5MG TABLET PO SCH ×3 (10:20→21:22)
[2019-08-26] MEDS: TAMSULOSIN HCL 0.4MG SR CAPSULE PO SCH (10:21)
[2019-08-26] MEDS: BACITRACIN 15GM TUBE TOP SCH ×2 (10:21→18:01)
[2019-08-26] MEDS ORDERED: POTASSIUM CHLORIDE INJ 40 MEQ in DEXT 5% WATER 250 ML IV NR ×2 (13:30→21:00)
[2019-08-26 14:50] LABS: VITAMIN B12 SERUM 651 pg/mL (211-911)
[2019-08-26] MEDS: APIXABAN 5 MG TABLET PO SCH (17:58)
[2019-08-26] MEDS ORDERED: ACETYLCYSTEINE 100MG/ML 10% VIAL 4ML INH SCH (18:00)
[2019-08-26 19:07] LABS: PLATELET ESTIMATE NORMAL
[2019-08-27] VITALS (12 sets, daily range): BP systolic 92–117; BP diastolic 50–79
[2019-08-27] MEDS: METOCLOPRAMIDE HCL 10MG/2ML VIAL IV SCH ×4 (00:05→17:50)
[2019-08-27] MEDS: BLOOD SUGAR DIAGNOSTIC STRIP TEST SCH ×4 (06:00→17:38)
[2019-08-27 06:23] LABS: BASOPHILS % 0.3 % (0.0-2.0); EOSINOPHILS % 0.7 % (0.0-5.0); HEMATOCRIT. 26.2 % (42.0-52.0); HEMOGLOBIN. 8.5 g/dL (14.0-18.0); LYMPHOCYTES % 7.2 % (20.0-50.0); MEAN CORPUSCULAR HEMOGLOBIN 29.5 pg (28.0-32.0); MEAN CORPUSCULAR VOLUME 90.7 fL (80.0-94.0); MEAN PLATELET VOLUME 10.4 fl (7.4-10.4); MONOCYTES % 6.2 % (2.0-8.0); NEUTROPHILS % 85.6 % (40.0-76.0); PLATELET 190 x1000/uL (130-400); RED BLOOD CELL COUNT 2.89 mill/uL (4.7-6.1); RED CELL DISTRIBUTION WIDTH 17.3 % (11.6-14.6)
[2019-08-27] MEDS: MIDODRINE HCL 5MG TABLET PO SCH ×3 (06:30→21:08)
[2019-08-27] MEDS: SODIUM CHLORIDE 0.9% INJ 3ML FLUSH IVF SCH ×3 (06:30→21:08)
[2019-08-27 06:49] LABS: PHOSPHORUS 3.3 mg/dL (2.5-4.9)
[2019-08-27] MEDS: INSULIN LISPRO 100 UNITS/ML SUBCUT SCH ×5 (06:53→18:51)
[2019-08-27] MEDS ORDERED: POTASSIUM CHLORIDE 20MEQ TABLET SR PO SCH (09:00)
[2019-08-27] MEDS: IPRATROPIUM/ALBUTEROL 0.5-3(2.5)MG/3ML NEB HHN SCH ×5 (09:20→21:20)
[2019-08-27] MEDS: CLOPIDOGREL 75MG TABLET PO SCH (09:41)
[2019-08-27] MEDS: PANTOPRAZOLE SODIUM 40 MG/VIAL IV SCH ×2 (09:41→21:07)
[2019-08-27] MEDS: ASPIRIN 81MG EC TABLET PO SCH (09:41)
[2019-08-27] MEDS: TAMSULOSIN HCL 0.4MG SR CAPSULE PO SCH (09:41)
[2019-08-27] MEDS: METHYLPHENIDATE HCL 5MG TABLET PO SCH ×2 (09:41→17:50)
[2019-08-27] MEDS: AMIODARONE HCL 200 MG TABLET PO SCH ×2 (09:41→21:08)
[2019-08-27] MEDS: SERTRALINE HCL 50MG TABLET PO SCH (09:41)
[2019-08-27] MEDS: ACETAMINOPHEN 325MG TABLET PO PRN ×2 (09:42→14:35)
[2019-08-27] MEDS: DOCUSATE SODIUM SUGAR FREE 100MG/10ML UDC NG SCH ×2 (09:43→17:50)
[2019-08-27] MEDS: BACITRACIN 15GM TUBE TOP SCH ×2 (09:44→17:51)
[2019-08-27] MEDS ORDERED: POTASSIUM CHLORIDE INJ 40 MEQ in DEXT 5% WATER 250 ML IV ONE (10:00)
[2019-08-27] MEDS ORDERED: SODIUM CHLORIDE 0.9% 1,000 ML IV SCH (12:15)
[2019-08-27] MEDS ORDERED: MINERAL OIL 30ML BOTTLE PO NR (12:28)
[2019-08-27] MEDS ORDERED: GUAIFENESIN 200MG/10ML SUGAR FREE UDC PO PRN (14:00)
[2019-08-27] MEDS: DEXT 5%/0.45% NACL KCL 20MEQ/L 1,000 ML IV SCH (14:35)
[2019-08-27] MEDS: CEFTRIAXONE 1 G PREMIX 50 ML IV SCH (14:36)
[2019-08-27] MEDS: HYDROCODONE/ACETAMINOPHEN 5/325MG TABLET PO PRN (22:03)
[2019-08-28] VITALS (12 sets, daily range): BP systolic 97–124; BP diastolic 60–82
[2019-08-28] MEDS: METOCLOPRAMIDE HCL 10MG/2ML VIAL IV SCH ×4 (00:16→17:35)
[2019-08-28] MEDS: IPRATROPIUM/ALBUTEROL 0.5-3(2.5)MG/3ML NEB HHN SCH ×6 (01:43→21:03)
[2019-08-28] MEDS: HYDROCODONE/ACETAMINOPHEN 5/325MG TABLET PO PRN ×3 (04:42→21:59)
[2019-08-28] MEDS: BLOOD SUGAR DIAGNOSTIC STRIP TEST SCH ×4 (06:00→17:35)
[2019-08-28] MEDS: INSULIN LISPRO 100 UNITS/ML SUBCUT SCH ×4 (06:00→18:00)
[2019-08-28] MEDS: MIDODRINE HCL 5MG TABLET PO SCH ×3 (06:21→21:28)
[2019-08-28] MEDS: SODIUM CHLORIDE 0.9% INJ 3ML FLUSH IVF SCH ×3 (06:22→21:46)
[2019-08-28 07:42] LABS: BASOPHILS % 0.2 % (0.0-2.0); EOSINOPHILS % 1.1 % (0.0-5.0); HEMATOCRIT. 27.6 % (42.0-52.0); HEMOGLOBIN. 8.9 g/dL (14.0-18.0); LYMPHOCYTES % 7.4 % (20.0-50.0); MEAN CORPUSCULAR HEMOGLOBIN 29.5 pg (28.0-32.0); MEAN CORPUSCULAR VOLUME 91.7 fL (80.0-94.0); MEAN PLATELET VOLUME 10.8 fl (7.4-10.4); MONOCYTES % 5.9 % (2.0-8.0); NEUTROPHILS % 85.4 % (40.0-76.0); PLATELET 189 x1000/uL (130-400); RED BLOOD CELL COUNT 3.02 mill/uL (4.7-6.1); RED CELL DISTRIBUTION WIDTH 18.1 % (11.6-14.6)
[2019-08-28 08:08] LABS: PHOSPHORUS 3.1 mg/dL (2.5-4.9)
[2019-08-28] MEDS: DEXT 5%/0.45% NACL KCL 20MEQ/L 1,000 ML IV SCH (09:03)
[2019-08-28] MEDS: PANTOPRAZOLE SODIUM 40 MG/VIAL IV SCH ×2 (09:03→21:28)
[2019-08-28] MEDS: DOCUSATE SODIUM SUGAR FREE 100MG/10ML UDC NG SCH ×2 (09:03→17:35)
[2019-08-28] MEDS: TAMSULOSIN HCL 0.4MG SR CAPSULE PO SCH (09:04)
[2019-08-28] MEDS: SERTRALINE HCL 50MG TABLET PO SCH (09:04)
[2019-08-28] MEDS: CLOPIDOGREL 75MG TABLET PO SCH (09:04)
[2019-08-28] MEDS: METHYLPHENIDATE HCL 5MG TABLET PO SCH ×2 (09:05→17:35)
[2019-08-28] MEDS: AMIODARONE HCL 200 MG TABLET PO SCH ×2 (09:05→21:28)
[2019-08-28] MEDS: BACITRACIN 15GM TUBE TOP SCH ×2 (09:05→17:06)
[2019-08-28] MEDS: ASPIRIN 81MG EC TABLET PO SCH (09:05)
[2019-08-28] MEDS ORDERED: POTASSIUM CHLORIDE INJ 40 MEQ in DEXT 5% WATER 250 ML IV ONE (11:30)
[2019-08-28] MEDS ORDERED: MAGNESIUM 2 G PREMIX 50 ML IV NR (12:00)
[2019-08-28] MEDS: CEFTRIAXONE 1 G PREMIX 50 ML IV SCH (13:30)
[2019-08-28] MEDS ORDERED: POTASSIUM CHLORIDE 20MEQ/PACKET NG NR (17:30)
[2019-08-29] VITALS (12 sets, daily range): BP systolic 97–155; BP diastolic 41–75
[2019-08-29] MEDS: METOCLOPRAMIDE HCL 10MG/2ML VIAL IV SCH ×4 (00:10→17:36)
[2019-08-29] MEDS: BLOOD SUGAR DIAGNOSTIC STRIP TEST SCH ×4 (00:11→17:28)
[2019-08-29] MEDS: INSULIN LISPRO 100 UNITS/ML SUBCUT SCH ×4 (00:11→17:35)
[2019-08-29] MEDS: IPRATROPIUM/ALBUTEROL 0.5-3(2.5)MG/3ML NEB HHN SCH (01:18)
[2019-08-29] MEDS: DEXT 5%/0.45% NACL KCL 20MEQ/L 1,000 ML IV SCH (04:26)
[2019-08-29] MEDS: MIDODRINE HCL 5MG TABLET PO SCH ×3 (06:03→21:30)
[2019-08-29] MEDS: SODIUM CHLORIDE 0.9% INJ 3ML FLUSH IVF SCH ×3 (06:03→21:30)
[2019-08-29 07:42] LABS: HEMATOCRIT. 28.6 % (42.0-52.0); HEMOGLOBIN. 9.1 g/dL (14.0-18.0); MEAN CORPUSCULAR HEMOGLOBIN 29.2 pg (28.0-32.0); MEAN CORPUSCULAR VOLUME 91.4 fL (80.0-94.0); MEAN PLATELET VOLUME 10.3 fl (7.4-10.4); PLATELET 198 x1000/uL (130-400); RED BLOOD CELL COUNT 3.13 mill/uL (4.7-6.1); RED CELL DISTRIBUTION WIDTH 17.3 % (11.6-14.6)
[2019-08-29] MEDS: DOCUSATE SODIUM SUGAR FREE 100MG/10ML UDC NG SCH ×3 (09:05→17:36)
[2019-08-29 09:06] LABS: FOLATE HEMATOCRIT 32.3 % (37.5-51.0)
[2019-08-29] MEDS: ASPIRIN 81MG EC TABLET PO SCH (09:07)
[2019-08-29] MEDS: SERTRALINE HCL 50MG TABLET PO SCH (09:07)
[2019-08-29] MEDS: METHYLPHENIDATE HCL 5MG TABLET PO SCH ×2 (09:07→17:36)
[2019-08-29] MEDS: HYDROCODONE/ACETAMINOPHEN 5/325MG TABLET PO PRN ×2 (09:13→14:21)
[2019-08-29] MEDS: AMIODARONE HCL 200 MG TABLET PO SCH ×2 (09:13→21:29)
[2019-08-29] MEDS: CLOPIDOGREL 75MG TABLET PO SCH (09:14)
[2019-08-29] MEDS: TAMSULOSIN HCL 0.4MG SR CAPSULE PO SCH (09:15)
[2019-08-29] MEDS: PANTOPRAZOLE SODIUM 40 MG/VIAL IV SCH ×2 (09:15→21:29)
[2019-08-29] MEDS: BACITRACIN 15GM TUBE TOP SCH ×2 (09:20→17:36)
[2019-08-29 11:02] LABS: PLATELET ESTIMATE NORMAL
[2019-08-29 13:06] LABS: FOLATE RBC 1368 ng/mL (>498)
[2019-08-29] MEDS: CEFTRIAXONE 1 G PREMIX 50 ML IV SCH (14:09)
[2019-08-30] VITALS (12 sets, daily range): BP systolic 2–133; BP diastolic 50–75
[2019-08-30] MEDS: DEXT 5%/0.45% NACL KCL 20MEQ/L 1,000 ML IV SCH
[2019-08-30] MEDS: BLOOD SUGAR DIAGNOSTIC STRIP TEST SCH ×4 (00:11→17:56)
[2019-08-30] MEDS: MIDODRINE HCL 5MG TABLET PO SCH (06:03)
[2019-08-30] MEDS: SODIUM CHLORIDE 0.9% INJ 3ML FLUSH IVF SCH ×3 (06:03→21:20)
[2019-08-30] MEDS: METOCLOPRAMIDE HCL 10MG/2ML VIAL IV SCH ×4 (06:03→17:56)
[2019-08-30] MEDS: INSULIN LISPRO 100 UNITS/ML SUBCUT SCH ×4 (06:07→18:02)
[2019-08-30 07:30] LABS: BASOPHILS % 0.6 % (0.0-2.0); EOSINOPHILS % 0.7 % (0.0-5.0); HEMATOCRIT. 27.2 % (42.0-52.0); MEAN CORPUSCULAR HEMOGLOBIN 29.9 pg (28.0-32.0); MEAN PLATELET VOLUME 10.5 fl (7.4-10.4); MONOCYTES % 4.9 % (2.0-8.0); NEUTROPHILS % 84.8 % (40.0-76.0); PLATELET 195 x1000/uL (130-400); RED BLOOD CELL COUNT 2.99 mill/uL (4.7-6.1); RED CELL DISTRIBUTION WIDTH 17.7 % (11.6-14.6)
[2019-08-30] MEDS: IPRATROPIUM/ALBUTEROL 0.5-3(2.5)MG/3ML NEB HHN SCH ×2 (09:25→15:34)
[2019-08-30] MEDS: SERTRALINE HCL 50MG TABLET PO SCH (09:57)
[2019-08-30] MEDS: AMIODARONE HCL 200 MG TABLET PO SCH ×2 (09:57→21:20)
[2019-08-30] MEDS: PANTOPRAZOLE SODIUM 40 MG/VIAL IV SCH ×2 (09:57→21:18)
[2019-08-30] MEDS: ASPIRIN 81MG EC TABLET PO SCH (09:57)
[2019-08-30] MEDS: TAMSULOSIN HCL 0.4MG SR CAPSULE PO SCH (09:58)
[2019-08-30] MEDS: METHYLPHENIDATE HCL 5MG TABLET PO SCH ×2 (09:58→17:56)
[2019-08-30] MEDS: CLOPIDOGREL 75MG TABLET PO SCH (09:58)
[2019-08-30] MEDS: BACITRACIN 15GM TUBE TOP SCH ×2 (09:59→17:00)
[2019-08-30] MEDS: DOCUSATE SODIUM SUGAR FREE 100MG/10ML UDC NG SCH ×3 (12:26→17:56)
[2019-08-30] MEDS ORDERED: FUROSEMIDE 40MG/4ML VIAL IVP NR (12:30)
[2019-08-30] MEDS: CEFTRIAXONE 1 G PREMIX 50 ML IV SCH (12:30)
[2019-08-30] MEDS: MIDODRINE HCL 2.5MG TABLET PO SCH ×2 (14:07→21:20)
[2019-08-30] MEDS: HYDROCODONE/ACETAMINOPHEN 5/325MG TABLET PO PRN ×2 (18:13→23:20)
[2019-08-31] VITALS (12 sets, daily range): BP systolic 96–141; BP diastolic 54–94
[2019-08-31] MEDS: METOCLOPRAMIDE HCL 10MG/2ML VIAL IV SCH ×4 (00:20→17:28)
[2019-08-31] MEDS: MAGNESIUM OXIDE 400MG TABLET PO SCH ×2 (00:20→09:35)
[2019-08-31] MEDS: IPRATROPIUM/ALBUTEROL 0.5-3(2.5)MG/3ML NEB HHN SCH ×4 (00:20→15:15)
[2019-08-31] MEDS: INSULIN LISPRO 100 UNITS/ML SUBCUT SCH ×4 (00:20→17:28)
[2019-08-31] MEDS: BLOOD SUGAR DIAGNOSTIC STRIP TEST SCH ×4 (06:00→17:29)
[2019-08-31] MEDS: SODIUM CHLORIDE 0.9% INJ 3ML FLUSH IVF SCH ×3 (06:00→21:24)
[2019-08-31] MEDS: MIDODRINE HCL 2.5MG TABLET PO SCH ×3 (06:05→21:22)
[2019-08-31 07:34] LABS: BASOPHILS % 0.4 % (0.0-2.0); EOSINOPHILS % 1.7 % (0.0-5.0); HEMATOCRIT. 26.5 % (42.0-52.0); HEMOGLOBIN. 8.7 g/dL (14.0-18.0); LYMPHOCYTES % 10.7 % (20.0-50.0); MEAN CORPUSCULAR HEMOGLOBIN 29.7 pg (28.0-32.0); MEAN CORPUSCULAR VOLUME 90.4 fL (80.0-94.0); MEAN PLATELET VOLUME 10.5 fl (7.4-10.4); MONOCYTES % 5.9 % (2.0-8.0); NEUTROPHILS % 81.3 % (40.0-76.0); PLATELET 194 x1000/uL (130-400); RED BLOOD CELL COUNT 2.93 mill/uL (4.7-6.1); RED CELL DISTRIBUTION WIDTH 17.6 % (11.6-14.6)
[2019-08-31 07:54] LABS: PHOSPHORUS 2.7 mg/dL (2.5-4.9)
[2019-08-31] MEDS ORDERED: POTASSIUM CHLORIDE 20MEQ TABLET SR PO SCH ×2 (09:15→13:00)
[2019-08-31] MEDS: PANTOPRAZOLE SODIUM 40 MG/VIAL IV SCH ×2 (09:28→21:22)
[2019-08-31] MEDS: DOCUSATE SODIUM SUGAR FREE 100MG/10ML UDC NG SCH ×2 (09:28→17:00)
[2019-08-31] MEDS: METHYLPHENIDATE HCL 5MG TABLET PO SCH ×2 (09:31→17:28)
[2019-08-31] MEDS: ASPIRIN 81MG EC TABLET PO SCH (09:31)
[2019-08-31] MEDS: BACITRACIN 15GM TUBE TOP SCH ×2 (09:31→17:30)
[2019-08-31] MEDS: AMIODARONE HCL 200 MG TABLET PO SCH ×2 (09:31→21:22)
[2019-08-31] MEDS: CLOPIDOGREL 75MG TABLET PO SCH (09:31)
[2019-08-31] MEDS: SERTRALINE HCL 50MG TABLET PO SCH (09:31)
[2019-08-31] MEDS: TAMSULOSIN HCL 0.4MG SR CAPSULE PO SCH (09:31)
[2019-08-31] MEDS ORDERED: FUROSEMIDE 100MG/10ML VIAL IVP NR (10:15)
[2019-08-31] MEDS ORDERED: MAGNESIUM 2 G PREMIX 50 ML IV SCH (11:00)
[2019-08-31] MEDS: CEFTRIAXONE 1 G PREMIX 50 ML IV SCH (12:35)
[2019-08-31] MEDS: HYDROCODONE/ACETAMINOPHEN 5/325MG TABLET PO PRN ×2 (13:41→21:52)
[2019-08-31] MEDS: LEVOFLOXACIN 750MG PREMIX 150 ML IV SCH (21:27)
[2019-09-01] VITALS (12 sets, daily range): BP systolic 94–122; BP diastolic 53–74
[2019-09-01] MEDS: IPRATROPIUM/ALBUTEROL 0.5-3(2.5)MG/3ML NEB HHN SCH ×3 (00:53→15:54)
[2019-09-01] MEDS: SODIUM CHLORIDE 0.9% INJ 3ML FLUSH IVF SCH ×3 (05:57→21:54)
[2019-09-01] MEDS: BLOOD SUGAR DIAGNOSTIC STRIP TEST SCH ×4 (06:00→17:06)
[2019-09-01] MEDS: INSULIN LISPRO 100 UNITS/ML SUBCUT SCH ×4 (06:00→17:55)
[2019-09-01] MEDS: METOCLOPRAMIDE HCL 10MG/2ML VIAL IV SCH ×4 (06:40→17:06)
[2019-09-01] MEDS: MIDODRINE HCL 2.5MG TABLET PO SCH ×3 (06:42→21:53)
[2019-09-01 07:40] LABS: BASOPHILS % 0.8 % (0.0-2.0); EOSINOPHILS % 1.8 % (0.0-5.0); HEMATOCRIT. 27.3 % (42.0-52.0); MEAN CORPUSCULAR HEMOGLOBIN 30.1 pg (28.0-32.0); MEAN CORPUSCULAR VOLUME 91.3 fL (80.0-94.0); MEAN PLATELET VOLUME 10.1 fl (7.4-10.4); MONOCYTES % 6.1 % (2.0-8.0); NEUTROPHILS % 80.3 % (40.0-76.0); PLATELET 242 x1000/uL (130-400); RED BLOOD CELL COUNT 2.99 mill/uL (4.7-6.1); RED CELL DISTRIBUTION WIDTH 17.9 % (11.6-14.6)
[2019-09-01] MEDS: SERTRALINE HCL 50MG TABLET PO SCH (08:42)
[2019-09-01] MEDS: METHYLPHENIDATE HCL 5MG TABLET PO SCH ×2 (08:43→17:04)
[2019-09-01] MEDS: TAMSULOSIN HCL 0.4MG SR CAPSULE PO SCH (08:43)
[2019-09-01] MEDS: ASPIRIN 81MG EC TABLET PO SCH (08:43)
[2019-09-01] MEDS: CLOPIDOGREL 75MG TABLET PO SCH (08:43)
[2019-09-01] MEDS: AMIODARONE HCL 200 MG TABLET PO SCH ×2 (08:44→21:53)
[2019-09-01] MEDS: MAGNESIUM OXIDE 400MG TABLET PO SCH (08:52)
[2019-09-01] MEDS: DOCUSATE SODIUM SUGAR FREE 100MG/10ML UDC NG SCH ×2 (08:53→17:00)
[2019-09-01] MEDS: HYDROCODONE/ACETAMINOPHEN 5/325MG TABLET PO PRN ×2 (08:58→14:27)
[2019-09-01] MEDS: BACITRACIN 15GM TUBE TOP SCH ×2 (09:00→17:00)
[2019-09-01] MEDS: APIXABAN 2.5 MG TABLET PO SCH ×2 (11:00→21:52)
[2019-09-01] MEDS ORDERED: MAGNESIUM 4 G PREMIX 100 ML IV SCH (12:00)
[2019-09-01] MEDS: PANTOPRAZOLE SODIUM 40 MG/VIAL IV SCH ×2 (12:09→21:52)
[2019-09-01] MEDS: LEVOFLOXACIN 750MG PREMIX 150 ML IV SCH (21:53)
[2019-09-02] VITALS (12 sets, daily range): BP systolic 92–116; BP diastolic 51–70
[2019-09-02] MEDS: INSULIN LISPRO 100 UNITS/ML SUBCUT SCH ×5 (00:26→23:42)
[2019-09-02] MEDS: METOCLOPRAMIDE HCL 10MG/2ML VIAL IV SCH ×5 (00:26→23:41)
[2019-09-02] MEDS: ACETAMINOPHEN 325MG TABLET PO PRN (00:34)
[2019-09-02] MEDS: BLOOD SUGAR DIAGNOSTIC STRIP TEST SCH ×5 (05:34→23:42)
[2019-09-02] MEDS: SODIUM CHLORIDE 0.9% INJ 3ML FLUSH IVF SCH ×3 (05:35→21:25)
[2019-09-02] MEDS: MIDODRINE HCL 2.5MG TABLET PO SCH ×3 (05:43→21:25)
[2019-09-02 07:05] LABS: BASOPHILS % 0.7 % (0.0-2.0); EOSINOPHILS % 1.5 % (0.0-5.0); HEMATOCRIT. 25.8 % (42.0-52.0); HEMOGLOBIN. 8.7 g/dL (14.0-18.0); LYMPHOCYTES % 9.5 % (20.0-50.0); MEAN CORPUSCULAR HEMOGLOBIN 30.3 pg (28.0-32.0); MEAN CORPUSCULAR VOLUME 90.4 fL (80.0-94.0); MEAN PLATELET VOLUME 9.9 fl (7.4-10.4); MONOCYTES % 7.9 % (2.0-8.0); NEUTROPHILS % 80.4 % (40.0-76.0); PLATELET 216 x1000/uL (130-400); RED BLOOD CELL COUNT 2.86 mill/uL (4.7-6.1)
[2019-09-02 07:22] LABS: PHOSPHORUS 2.1 mg/dL (2.5-4.9)
[2019-09-02] MEDS: BACITRACIN 15GM TUBE TOP SCH (09:00)
[2019-09-02] MEDS: DOCUSATE SODIUM SUGAR FREE 100MG/10ML UDC NG SCH ×2 (09:00→17:00)
[2019-09-02] MEDS: PANTOPRAZOLE SODIUM 40 MG/VIAL IV SCH ×2 (09:19→21:25)
[2019-09-02] MEDS: MAGNESIUM OXIDE 400MG TABLET PO SCH (09:20)
[2019-09-02] MEDS: APIXABAN 2.5 MG TABLET PO SCH ×2 (09:20→18:08)
[2019-09-02] MEDS: AMIODARONE HCL 200 MG TABLET PO SCH ×2 (09:20→21:25)
[2019-09-02] MEDS: CLOPIDOGREL 75MG TABLET PO SCH (09:20)
[2019-09-02] MEDS: ASPIRIN 81MG EC TABLET PO SCH (09:20)
[2019-09-02] MEDS: METHYLPHENIDATE HCL 5MG TABLET PO SCH ×2 (09:20→18:08)
[2019-09-02] MEDS: TAMSULOSIN HCL 0.4MG SR CAPSULE PO SCH (09:21)
[2019-09-02] MEDS: SERTRALINE HCL 50MG TABLET PO SCH (09:21)
[2019-09-02] MEDS: IPRATROPIUM/ALBUTEROL 0.5-3(2.5)MG/3ML NEB HHN SCH (09:37)
[2019-09-02] MEDS ORDERED: FUROSEMIDE 40MG/4ML VIAL IVP NR (13:15)
[2019-09-02] MEDS: HYDROCODONE/ACETAMINOPHEN 5/325MG TABLET PO PRN ×2 (16:07→21:44)
[2019-09-02] MEDS: LEVOFLOXACIN 750MG PREMIX 150 ML IV SCH (21:26)
[2019-09-03] VITALS (8 sets, daily range): BP systolic 101–128; BP diastolic 53–66
[2019-09-03] MEDS: IPRATROPIUM/ALBUTEROL 0.5-3(2.5)MG/3ML NEB HHN SCH ×2 (01:30→07:35)
[2019-09-03] MEDS: METOCLOPRAMIDE HCL 10MG/2ML VIAL IV SCH ×2 (05:44→12:43)
[2019-09-03] MEDS: MIDODRINE HCL 2.5MG TABLET PO SCH ×2 (05:44→14:20)
[2019-09-03] MEDS: HYDROCODONE/ACETAMINOPHEN 5/325MG TABLET PO PRN (05:45)
[2019-09-03] MEDS: BLOOD SUGAR DIAGNOSTIC STRIP TEST SCH ×2 (05:45→12:34)
[2019-09-03] MEDS: SODIUM CHLORIDE 0.9% INJ 3ML FLUSH IVF SCH ×2 (05:45→14:21)
[2019-09-03 06:39] LABS: BASOPHILS % 0.4 % (0.0-2.0); EOSINOPHILS % 0.9 % (0.0-5.0); HEMATOCRIT. 26.3 % (42.0-52.0); HEMOGLOBIN. 8.8 g/dL (14.0-18.0); LYMPHOCYTES % 11.4 % (20.0-50.0); MEAN CORPUSCULAR HEMOGLOBIN 30.4 pg (28.0-32.0); MEAN CORPUSCULAR VOLUME 91.3 fL (80.0-94.0); MEAN PLATELET VOLUME 10.1 fl (7.4-10.4); MONOCYTES % 8.2 % (2.0-8.0); NEUTROPHILS % 79.1 % (40.0-76.0); PLATELET 243 x1000/uL (130-400); RED BLOOD CELL COUNT 2.88 mill/uL (4.7-6.1); RED CELL DISTRIBUTION WIDTH 18.3 % (11.6-14.6)
[2019-09-03] MEDS: INSULIN LISPRO 100 UNITS/ML SUBCUT SCH ×2 (06:45→12:41)
[2019-09-03 07:00] LABS: PHOSPHORUS 2.2 mg/dL (2.5-4.9)
[2019-09-03] MEDS ORDERED: METOLAZONE 10MG TABLET PO NR (08:15)
[2019-09-03] MEDS: ASPIRIN 81MG EC TABLET PO SCH (08:49)
[2019-09-03] MEDS: APIXABAN 2.5 MG TABLET PO SCH (08:49)
[2019-09-03] MEDS: SERTRALINE HCL 50MG TABLET PO SCH (08:49)
[2019-09-03] MEDS: DOCUSATE SODIUM SUGAR FREE 100MG/10ML UDC NG SCH ×2 (08:49→08:53)
[2019-09-03] MEDS: CLOPIDOGREL 75MG TABLET PO SCH (08:49)
[2019-09-03] MEDS: METHYLPHENIDATE HCL 5MG TABLET PO SCH (08:49)
[2019-09-03] MEDS: PANTOPRAZOLE SODIUM 40 MG/VIAL IV SCH (08:49)
[2019-09-03] MEDS: TAMSULOSIN HCL 0.4MG SR CAPSULE PO SCH (08:50)
[2019-09-03] MEDS: MAGNESIUM OXIDE 400MG TABLET PO SCH (08:50)
[2019-09-03] MEDS: AMIODARONE HCL 200 MG TABLET PO SCH (08:50)
[2019-09-03] MEDS ORDERED: BUMETANIDE 2.5MG/10ML VIAL IV NR (10:00)
[2019-09-03] MEDS ORDERED: INSULIN GLARGINE UD 100 UNITS/ML SYR SUBCUT SCH ×2 (10:00→12:00)
[2019-09-03] MEDS: BACITRACIN 15GM TUBE TOP SCH (10:57)
[2019-09-03] MEDS ORDERED: POTASSIUM PHOS,M-BASIC-D-BASIC 15 MMOL in DEXT 5% WATER 245 ML IV SCH (11:00)
[2019-09-03] MEDS ORDERED: DOPAMINE HCL 400 MG in DEXT 5% WATER 240 ML IV PRN (15:45)
[2019-09-03] MEDS ORDERED: EPINEPHRINE 4 MG in SODIUM CHLORIDE 0.9% 246 ML IV ONE (15:45)
[2019-09-03] MEDS ORDERED: EPINEPHRINE 4 MG in DEXT 5% WATER 246 ML IV ONE (15:45)
[2019-09-04] MEDS ORDERED: LEVOFLOXACIN 750MG PREMIX 150 ML IV SCH (21:00)
== END 2019-09-03 18:40 | disposition expired | DRG 165 ==
LOC: 3WST 23:08 → CVICU 08-17 11:02 → 3WST 08-24 10:11
PROVIDERS: ADMIT Internal Medicine; ATTEND Internal Medicine
PROC: 02100Z9 Bypass Coronary Artery, One Artery from Left Internal Mammary, Open Approach (ICD-10-PCS; principal; 2019-08-17)
PROC: 021309W Bypass Coronary Artery, Four or More Arteries from Aorta with Autologous Venous Tissue, Open Approach (ICD-10-PCS; 2019-08-17)
PROC: 0BH17EZ Insertion of Endotracheal Airway into Trachea, Via Natural or Artificial Opening (ICD-10-PCS; 2019-08-17)
PROC: 5A1221Z Performance of Cardiac Output, Continuous (ICD-10-PCS; 2019-08-17)
PROC: 5A1955Z Respiratory Ventilation, Greater than 96 Consecutive Hours (ICD-10-PCS; 2019-08-17)
PROC: 06BQ4ZZ Excision of Left Saphenous Vein, Percutaneous Endoscopic Approach (ICD-10-PCS; 2019-08-17)
PROC: 30233N1 Transfusion of Nonautologous Red Blood Cells into Peripheral Vein, Percutaneous Approach (ICD-10-PCS; 2019-08-17)
PROC: 02HV33Z Insertion of Infusion Device into Superior Vena Cava, Percutaneous Approach (ICD-10-PCS; 2019-08-22)
DX: I21.4 Non-ST elevation (NSTEMI) myocardial infarction (principal); J96.00 Acute respiratory failure, unspecified whether with hypoxia or hypercapnia; E43 Unspecified severe protein-calorie malnutrition; R57.0 Cardiogenic shock; G93.41 Metabolic encephalopathy; N17.9 Acute kidney failure, unspecified; I47.2 Ventricular tachycardia; I50.23 Acute on chronic systolic (congestive) heart failure; N18.3 Chronic kidney disease, stage 3 (moderate); E11.22 Type 2 diabetes mellitus with diabetic chronic kidney disease; E11.42 Type 2 diabetes mellitus with diabetic polyneuropathy; I48.91 Unspecified atrial fibrillation; E87.1 Hypo-osmolality and hyponatremia; B37.49 Other urogenital candidiasis; E66.01 Morbid (severe) obesity due to excess calories; I25.5 Ischemic cardiomyopathy; D63.8 Anemia in other chronic diseases classified elsewhere; I25.10 Atherosclerotic heart disease of native coronary artery without angina pectoris; E78.5 Hyperlipidemia, unspecified; F10.10 Alcohol abuse, uncomplicated; F17.200 Nicotine dependence, unspecified, uncomplicated; I13.0 Hypertensive heart and chronic kidney disease with heart failure and stage 1 through stage 4 chronic kidney disease, or unspecified chronic kidney disease; E83.52 Hypercalcemia; E87.2 Acidosis; E87.6 Hypokalemia; J98.11 Atelectasis; K31.84 Gastroparesis; K92.2 Gastrointestinal hemorrhage, unspecified; E11.43 Type 2 diabetes mellitus with diabetic autonomic (poly)neuropathy; E11.51 Type 2 diabetes mellitus with diabetic peripheral angiopathy without gangrene; E11.649 Type 2 diabetes mellitus with hypoglycemia without coma; E11.65 Type 2 diabetes mellitus with hyperglycemia; F17.210 Nicotine dependence, cigarettes, uncomplicated; R74.0 Nonspecific elevation of levels of transaminase and lactic acid dehydrogenase [LDH]; B49 Unspecified mycosis; K59.00 Constipation, unspecified; Z20.828 Contact with and (suspected) exposure to other viral communicable diseases; E87.8 Other disorders of electrolyte and fluid balance, not elsewhere classified; Z79.01 Long term (current) use of anticoagulants; Z91.14 Patient's other noncompliance with medication regimen; Z95.5 Presence of coronary angioplasty implant and graft; Z95.810 Presence of automatic (implantable) cardiac defibrillator; Z98.62 Peripheral vascular angioplasty status; Z79.02 Long term (current) use of antithrombotics/antiplatelets; Z83.3 Family history of diabetes mellitus; Z82.49 Family history of ischemic heart disease and other diseases of the circulatory system; Z87.11 Personal history of peptic ulcer disease; Z90.49 Acquired absence of other specified parts of digestive tract; I25.2 Old myocardial infarction; Z95.1 Presence of aortocoronary bypass graft; Z89.432 Acquired absence of left foot; Z89.431 Acquired absence of right foot; Z68.35 Body mass index [BMI] 35.0-35.9, adult; Z79.84 Long term (current) use of oral hypoglycemic drugs; Z79.899 Other long term (current) drug therapy
CPT/HCPCS: 36415; 36600; 71045; 73620; 74018; 76700; 76937; 80048; 80051; 80053; 80061; 80076; 81003; 82043; 82330; 82375; 82550; 82570; 82607; 82728; 82747; 82805; 82962; 83036; 83540; 83550; 83735; 84100; 84132; 84145; 84300; 84443; 84484; 85014; 85018; 85025; 85027; 85347; 85520; 86850; 86900; 86920; 87070; 87077; 87106; 87186; 87635; 92610; 93005; 93306; 93880; 94640; 97110; 97116; 97162; 97166; 97530; C1725; C1729; C1751; C1758; C9113; J0282; J0690; J0696; J0885; J1100; J1250; J1265; J1450; J1630; J1644; J1815; J1885; J1940; J1956; J2060; J2250; J2270; J2310; J2370; J2405; J2440; J2710; J2720; J2765; J3475; J3480; J3490; J7040; J7050; J7060; J7608; L3908; P9016; P9041; P9047; U0003-CS